=== PATIENT | female | born 1945 | race Caucasian/White ===

== ENCOUNTER 2016-06-09 10:13 | Emergency (ER) | payer MEDICARE, OTHER ==
--- NOTE | 2016-06-09 10:36 | ER Document Report ---
ED Medical Screen (RME) - General Stated Complaint: POSSIBLE ALLERGIC REACTION Time seen by provider: 10:31 Mode of Arrival: Ambulatory Information source: Patient - HPI Patient complains to provider of: POSSIBLE REACTION TO LEVAQUIN Onset: Other - 4 AM THIS MORNING Onset/Duration: Sudden Quality of pain: No pain Severity: None Pain Level: Denies Associated Symptoms: Cough (nonproductive), Hurts to breath, Shortness of breath , Other - THROAT FEELS TIGHT Exacerbated by: Denies Relieved by: Denies Similar symptoms previously: No Recently seen / treated by doctor: Yes - PUT ON LEVAQUIN THIS AM - Related Data Smoking: Chew Frequency of alcohol use: None Drug Abuse: None Pertinent History: GIVEN 50MG BENADRYL AND 120MG DEPOMEDROL PRIOR TO ARRIVAL AT [facility]. I have greeted and performed a rapid initial assessment of this patient. A comprehensive ED assessment and evaluation of the patient, analysis of test results and completion of the medical decision making process will be conducted by additional ED providers. Allergies/Adverse Reactions: levofloxacin [From Levaquin] Allergy (Verified 06/09/16 10:32) Past Medical History - Past Medical History Cardiac Medical History: Reports: Hx Hypertension Endocrine Medical History: Reports: Hx Hypothyroidism Musculoskeltal Medical History: Reports Hx Arthritis Past Surgical History: Reports: Hx Cholecystectomy, Hx Tubal Ligation - Immunizations Immunizations up to date: Yes Hx Diphtheria, Pertussis, Tetanus Vaccination: Yes
[2016-06-09] MEDS ORDERED: FAMOTIDINE 20 MG TABLET PO ONE (12:41)
--- NOTE | 2016-06-09 12:48 | ER Document Report ---
HPI - HPI Patient complains to provider of: allergic reaction Onset: This morning Onset/Duration: Better Quality of pain: No pain Pain Level: Denies Context: Patient states that she has had sinus infection for the past few weeks and was recently placed on an antibiotic to treat this. Patient states she took Levaquin for the first time last night at 10 PM. Patient reports waking up at 4 AM like her throat was closing. Patient denies any rash, difficulty breathing , chest pain, or any other symptoms. Patient states she went to her doctor's office and was given a shot of Benadryl as well as steroids around 9:50 this morning. Patient states her doctor then advised her to come to the emergency room so that we could observe her for at least 2 hours. Patient states that she arrived to the emergency department about 2 hours ago. Patient currently denies any complaints or symptoms. Patient states that her throat swelling symptoms have resolved. Associated Symptoms: Other - Allergic reaction Exacerbated by: Denies Relieved by: Denies Similar symptoms previously: No Recently seen / treated by doctor: Yes - ROS ROS below otherwise negative: Yes Systems Reviewed and Negative: Yes All other systems reviewed and negative - CONSTITUTIONAL Constitutional: DENIES: Fever, Chills - EENT EENT: DENIES: Sore Throat, Congestion - NEURO Neurology: DENIES: Headache, Weakness - CARDIOVASCULAR Cardiovascular: DENIES: Chest pain - RESPIRATORY Respiratory: DENIES: Trouble Breathing, Coughing - GASTROINTESTINAL Gastrointestinal: DENIES: Nausea, Patient vomiting - REPRODUCTIVE Reproductive: DENIES: : - MUSCULOSKELETAL Musculoskeletal: DENIES: Swelling - DERM Skin Color: Normal Skin Problems: None Past Medical History - General Information source: Patient - Social History Smoking Status: Unknown if Ever Smoked Chew tobacco use (# tins/day): Yes Frequency of alcohol use: None Drug Abuse: None Lives with: Spouse/Significant other Family History: Arthritis, CAD, DM, Hypertension Patient has suicidal ideation: No Patient has homicidal ideation: No - Past Medical History Cardiac Medical History: Reports: Hx Hypertension Endocrine Medical History: Reports: Hx Hypothyroidism Renal/ Medical History: Denies: Hx Peritoneal Dialysis Musculoskeltal Medical History: Reports Hx Arthritis Past Surgical History: Reports: Hx Cholecystectomy, Hx Tubal Ligation - Immunizations Immunizations up to date: Yes Hx Diphtheria, Pertussis, Tetanus Vaccination: Yes Vertical Provider Document - CONSTITUTIONAL Agree With Documented VS: Yes Exam Limitations: No Limitations General Appearance: WD/WN, No Apparent Distress - INFECTION CONTROL TRAVEL OUTSIDE OF THE [place] IN LAST 30 DAYS: No - HEENT HEENT: Atraumatic, Normal ENT Exam, Normocephalic Notes: No angioedema, no potential airway compromise. Respirations unlabored. Patient managing oral secretions Mild tenderness with palpation over the maxillary sinus, no facial swelling - NECK Neck: Normal Inspection, Supple - RESPIRATORY Respiratory: Breath Sounds Normal, No Respiratory Distress, Chest Non-Tender O2 Sat by Pulse Oximetry: 98 - CARDIOVASCULAR Cardiovascular: Regular Rate, Regular Rhythm, No Murmur - BACK Back: Normal Inspection - MUSCULOSKELETAL/EXTREMETIES Musculoskeletal/Extremeties: MAEW - NEURO Level of Consciousness: Awake, Alert, Appropriate Motor/Sensory: No Motor Deficit - DERM Integumentary: Warm, Dry, No Rash Course - Re-evaluation Re-evalutation: 06/09/16 12:[address] Willett who agrees with plan of care Discussed worsening signs or symptoms that patient should return immediately for. Patient verbalized understanding and agrees with plan of care. Patient presently denies any complaints or symptoms at present. 06/09/16 12:44 Patient states she has taken Augmentin in the past without adverse reaction - Vital Signs Vital signs: Temp Pulse Resp BP Pulse Ox 97.3 F 70 16 160/104 H 98 06/09/16 10:33 06/09/16 10:33 06/09/16 10:33 06/09/16 10:33 06/09/16 10:33 Discharge - Discharge Clinical Impression: hx sinus infection Allergic reaction caused by a drug Qualifiers: Encounter type: initial encounter Qualified Code(s): T78.40XA - Allergy, unspecified, initial encounter Condition: Stable Disposition: HOME, SELF-CARE Instructions: Acute Allergic Reaction to Drugs ([facility]), Augmentin ([facility]), Steroid Medication, Use of Diphenhydramine Additional Instructions: Return immediately for any new or worsening symptoms, call 911 if symptoms are severe Followup with your primary care provider, call tomorrow to make a followup appointment Take Benadryl and Pepcid [id number] as directed to help with your symptoms List Levaquin as an allergy in the future Prescriptions: Amox Tr/Potassium Clavulanate [Augmentin 875-125 Tablet] 1 tab PO BID 10 Days Prednisone [Deltasone 20 mg Tablet] 2 tab PO DAILY 5 Days Forms: Elevated Blood Pressure Referrals: SRINIVASA BURTON MD [Primary Care Provider] - Follow up tomorrow
[2016-06-09 13:20] VITALS: BP 171/81
== END 2016-06-09 13:16 | disposition home or self-care (01) ==
LOC: ER 10:13
DX: R09.89 Other specified symptoms and signs involving the circulatory and respiratory systems (principal); T37.8X5A Adverse effect of other specified systemic anti-infectives and antiparasitics, initial encounter; J32.9 Chronic sinusitis, unspecified; I10 Essential (primary) hypertension; Z72.0 Tobacco use
CPT/HCPCS: 99283; 70360; A9270

== ENCOUNTER → 2017-05-13 | Day surgery (SDC) | payer MEDICARE, OTHER ==
[~2017-05-13] MED LIST: LIDOCAINE 1%/EPINEPHRINE INJ 20 ML VIAL ONE
--- NOTE | 2017-05-13 17:13 | OPERATIVE REPORT E ---
Operative Report NAME: CRISTINO HANNAH : 1945 AGE: 72Y DATE OF SURGERY: May 13, 2017 ROOM: PREOPERATIVE DIAGNOSIS: Abnormal clustered microcalcifications, upper outer quadrant, left breast. POSTOPERATIVE DIAGNOSIS: Abnormal clustered microcalcifications, upper outer quadrant, left breast. OPERATION: 1. Stereotactically directed incision mammotomy and core biopsies, left breast. 2. Placement of click marker. 3. Interpretation of intraoperative mammography and core specimen. SURGEON: GINNY FENTON M.D. ANESTHESIA: 1% lidocaine plain. COMPLICATIONS: None. ESTIMATED BLOOD LOSS: Minimal. DRAINS: None. TISSUE REMOVED OR ALTERED: Multiple cores, left breast. PROCEDURE: The patient was brought from the holding area to the Radiology Suite where the left breast was placed in compression. A craniocaudal approach was used to localize the microcalcifications in the superficial aspect of the left breast upper outer quadrant. Skin was anesthetized with 1% lidocaine after prepping the surface of the breast with Betadine. A estephania was made in the skin with a #11 blade and a mammotome advanced to the appropriate depth. Three pre- and post-fire films showed good alignment between the Mammotome and the target microcalcifications which were in the inferior hemisphere of the Mammotome. We proceeded to obtain approximately 11 core specimens which were all collected on a single CoreTainer. The patient tolerated the procedure well. The CoreTainer was imaged and found to contain several microcalcifications. We felt the procedure was complete. A clip marker was deployed, followup mammogram showing the clip in the left breast post-biopsy cavity. Mammotome was removed and left breast placed in compression. The patient tolerated the procedure well. Post-procedure discharge instructions provided. DICTATING PHYSICIAN: GINNY FENTON M.D. [id number] PHY#: [id number] ID: [id number] JOB#: [id number] ACCT: [id number] cc:GINNY FENTON M.D. >
--- NOTE | 2017-05-18 08:45 | WOMENS IMAGING REPORT ---
EXAM DESCRIPTION: STEREO BREAST BX; LEFT DIG DX MAMMO NO CHG COMPLETED DATE/TIME: 05/13/2017 1:19 pm; 05/13/2017 1:10 pm REASON FOR STUDY: MAMMOGRAPHIC MICROCALIFICATION FOUND ON DIAGNOSTIC IMAGING OF BREAST; JOAQUÍN PEARSON T BX CLIP PLACEMENT R92.0 MAMMOGRAPHIC MICROCALCIFICATION FOUND ON DX IMAGING OF COMPARISON: None. LIMITATIONS: None. PROCEDURE: Vacuum-assisted stereotactic-guided biopsy of the lesion in the left breast performed by Dr. Silveira who also targeted the lesion. Using stereotactic guidance, a vacuum-assisted core biopsy of the targeted lesion was performed. A p ellet clip was deployed at the biopsy site. Post procedure image demonstrates no clip at the biopsy site. There is a 1.5 to 2 cm hematoma at the biopsy site. A specimen radiograph was obtained. The radiograph demonstrated calcifications of concern in the bio psy tissue. TECHNIQUE: Images from the stereotactic unit acquired during the procedure. Specimen radiography performed. Yes. Post- procedure image acquired post-clip placement. Yes. Post procedure 2 view mammograms performed in the mammography suite. Yes. Vacuum-assisted stereotactic-guided biopsy of the lesion in the left breast. Serial progress stereota ctic and single digital images acquired. FINDINGS: SPECIMEN RADIOGRAPH:Calcifications identified.. POST PROCEDURE MAMMOGRAMS FOR MARKER PLACEMENT: Yes. However, the marker is not seen on the postproc edure films and was extruded from the biopsy site POST PROCEDURE MAMMOGRAM: Small left breast hematoma 5 cm from the nipple left breast 3 o'clock posit ion. PATHOLOGY: Ductal carcinoma in situ CONCORDANT: Yes. The operating surgeon was notified of the findings. IMPRESSION: SUCCESSFUL STEREOTACTIC-GUIDED BIOPSY OF LESION IN THE LEFT BREAST. BIOPSY RESULTS ARE CONCORDANT WITH IMAGING FINDINGS. FOLLOW-UP: PER SURGEON BI-RADS 6 left breast known malignancy. Appropriate action should be taken TECHNICAL DOCUMENTATION: JOB ID: [id number]- All Rights Reserved
== END ==
LOC: RAD 10:35 → EDSTATUS 11:00
PROVIDERS: ATTEND Surgery
PROC: 0HBU3ZX Excision of Left Breast, Percutaneous Approach, Diagnostic (ICD-10-PCS; principal; 2017-05-13)
DX: D05.12 Intraductal carcinoma in situ of left breast (principal); Z17.0 Estrogen receptor positive status [ER+]
CPT/HCPCS: 88305 ×2; 19081; J3490

== ENCOUNTER 2017-06-09 06:02 | Day surgery (SDC) | payer MEDICARE, OTHER ==
[2017-06-02 12:00] LABS: HEMATOCRIT 34.6 % (36.0-47.0); HEMOGLOBIN 11.1 g/dL (12.0-15.5); MEAN CORPUSCULAR HEMOGLOBIN 26.3 pg (27.0-33.4); MEAN CORPUSCULAR VOLUME 82 fl (80-97); PLATELET COUNT 184 10^3/uL (150-450); RED BLOOD COUNT 4.22 10^6/uL (3.72-5.28); WHITE BLOOD COUNT 6.3 10^3/uL (4.0-10.5)
[2017-06-02 12:28] LABS: ANION GAP 10 (5-19); BLOOD UREA NITROGEN 20 mg/dL (7-20); CALCIUM 9.3 mg/dL (8.4-10.2); CARBON DIOXIDE 28 mmol/L (22-30); CHLORIDE 105 mmol/L (98-107); GLUCOSE 112 mg/dL (75-110); POTASSIUM 3.8 mmol/L (3.6-5.0); SODIUM 142.7 mmol/L (137-145)
--- NOTE | 2017-06-02 13:53 | EKG REPORT ---
SEVERITY:- OTHERWISE NORMAL ECG - SINUS RHYTHM BORDERLINE LEFT AXIS DEVIATION : Confirmed by: Christopher Nunez MD 02-Jun-2017 13:52:51
[~2017-06-09 06:02] MED LIST changes: +CEFAZOLIN 1 GM/D5W RTU 1 GM/50 ML RTUPB IV ONE; +CEFAZOLIN INJ 1 GM VIAL IV PRN; +LACTATED RINGERS 1000 ML IV PRN; +LIDOCAINE 0.5% INJ-PF (5 MG/ML) 50 ML SDV SUBCUT PRN; -LIDOCAINE 1%/EPINEPHRINE INJ 20 ML VIAL ONE; +LIDOCAINE 4% TRANSPARENT DRESSING 5 GM KIT TP PRN
[2017-06-09] MEDS ORDERED: LIDOCAINE 2% INJ (20 MG/ML) 20 ML MDV ONE (06:38)
--- NOTE | 2017-06-09 09:45 | RADIOLOGY REPORT (SQ) ---
EXAM DESCRIPTION: NM LYMPHATICS/LYMPH GLANDS COMPLETED DATE/TIME: 06/09/2017 8:30 am REASON FOR STUDY: BREAST CANCER D05.10 INTRADUCTAL CARCINOMA IN SITU OF UNSPECIFIED BREAST COMPARISON: Left breast stereotactic biopsy 01/30/2018 RADIONUCLIDE AND DOSE: 541 microcuries TC-99m tilmanocept - Lymphoseek. The route of agent administration: Subcutaneous in the skin. TECHNIQUE: The skin of the left breast was prepped in sterile fashion. The radiopharmaceutical was administered in equally divided doses in the periareolar breast. LIMITATIONS: None. FINDINGS: Images demonstrate activity at the injection site. There is migration towards the left ax illa. IMPRESSION: ADMINISTRATION OF RADIOPHARMACEUTICAL FOR SENTINEL LYMPH NODE EVALUATION. TECHNICAL DOCUMENTATION: JOB ID: [id number] [employer]- All Rights Reserved Reading location - IP/workstation name: [email or web address]
[2017-06-09] MEDS ORDERED: MICROFIBRILLAR COLLAGEN 1 GM PACK ONE (11:35)
[2017-06-09] MEDS ORDERED: LIDOCAINE 1%/EPINEPHRINE INJ 20 ML VIAL ONE (11:35)
[2017-06-09] MEDS ORDERED: METHYLENE BLUE 50 MG/10 ML AMPULE ONE (11:35)
[2017-06-09] MEDS ORDERED: FENTANYL CITRATE INJ/PF 100 MCG/2 ML AMPUL ONE ×2 (12:22→12:23)
[2017-06-09] MEDS ORDERED: LIDOCAINE 2% INJ-PF (20 MG/ML) 10 ML AMPUL ONE (12:22)
[2017-06-09] MEDS ORDERED: ONDANSETRON HCL INJ/PF 4 MG/2 ML SDV ONE (12:23)
[2017-06-09] MEDS ORDERED: DEXAMETHASONE SOD PHOSPHATE INJ 4 MG/1 ML VIAL ONE (12:23)
[2017-06-09] MEDS ORDERED: MIDAZOLAM 2 MG/2 ML INJ ONE (12:23)
[2017-06-09] MEDS ORDERED: PROPOFOL INJ 200 MG/20 ML VIAL IV ONE (12:24)
[2017-06-09] MEDS ORDERED: ACETAMINOPHEN 100 ML IV ONE ×2 (12:24→15:08)
[2017-06-09] MEDS ORDERED: DIPHENHYDRAMINE HCL 50 MG/ML VIAL IV PRN (13:03)
[2017-06-09] MEDS ORDERED: ONDANSETRON HCL INJ/PF 4 MG/2 ML SDV IV PRN (13:03)
[2017-06-09] MEDS ORDERED: MEPERIDINE HCL/PF INJ 25 MG/1 ML DISP.SYRIN IV PRN (13:03)
[2017-06-09] MEDS ORDERED: PROMETHAZINE HCL INJ 25 MG/1 ML VIAL IV PRN ×2 (13:03)
[2017-06-09] MEDS ORDERED: FENTANYL CITRATE INJ/PF 100 MCG/2 ML AMPUL IV PRN ×3 (13:03)
--- NOTE | 2017-06-09 14:56 | PDOC DISCHARGE SUMMARY ---
Discharge Summary (SDC) - Discharge Final Diagnosis: Left breast cancer Date of Surgery: 06/09/17 Discharge Date: 06/09/17 Condition: Stable Treatment or Instructions: [facility] [address] [id number] Care Instructions Following Your Lumpectomy Activities: Resume normal activities when you feel comfortable. It is best to remain as active as possible to speed your recovery. It is common to experience some fatigue after surgery and you may find that short naps are helpful. Avoid strenuous activity such as weight lifting, tennis, etc at your surgical site for two weeks. Perform gentle arm exercises daily and do not favor your operative arm to due increased risk of mobility issues postoperatively. No driving for 7 days after surgery. Do not drive if you are taking pain medication other than Tylenol or Ibuprofen. No swimming, tub baths or soaking in a hot tub for 4 weeks. There are no dietary restrictions. Do not smoke as this impairs wound healing. Surgical Site care: You may shower in 48 hours. Leave skin glue intact. Do not scrub the incision. Pat the area dry with a towel. You do not need to recover the wound although some patients find that they feel more comfortable using a light dressing for a few days to absorb any minimal drainage which may occur. If you use a dressing in this manner change it at least every day. Do not use heating pad or apply an ice pack to the operative site. You may apply deodorant if you are careful to avoid getting it on the wound itself. Medications: Take Toradol 10mg one pill every six hours as needed for pain. Resume all of your normal prescription medications after your surgery unless instructed otherwise. Follow-up: Call our office at to make a follow-up appointment in 10-14 days. Your doctor will call to discuss the pathology report with you as soon as it is available. Concerns: If you had a sentinel lymph node biopsy with your mastectomy, your urine may have a greenish discoloration. This is normal and will resolve as the blue dye slowly leaves your system. Some bruising may occur and will go away over time. If you have a fever of 101.5 or greater, chills, redness at the incision site , excessive drainage from your wound or severe pain not relieved by pain medication, call your doctor. A physician is available 24 hours a day 7 days a week in addition to regular office hours. If problems arise after normal office hours please call the hospital at . Please call [phone] if you have any questions or concerns. Prescriptions: Oxycodone HCl/Acetaminophen [Percocet 5-325 mg Tablet] 1 tab PO Q6 PRN #15 tab PRN Reason: Referrals: SRINIVASA BURTON MD [Primary Care Provider] - Discharge Diet: As Tolerated Discharge Activity: No Lifting/Push/Pulling, Walk Frequently Report the Following to Your Physician Immediately: Increase in Pain, Fever over 101 Degrees, Unusual Bleeding, Redness, Drainage-Foul Smelling
[2017-06-09] MEDS: FENTANYL CITRATE INJ/PF 100 MCG/2 ML AMPUL ONE ×2 (15:03→15:08)
--- NOTE | 2017-06-09 15:03 | Operative Report ---
Operative Report DATE OF SURGERY: 06/09/17 PREOPERATIVE DIAGNOSIS: DCIS, high-grade breast status post stereotactic biopsy POSTOPERATIVE DIAGNOSIS: Same OPERATION: 1. Needle localized left breast open excisional biopsy. 2. [place] lymph node biopsy left axilla 2. 3. Interpretation of specimen radiograph intraoperatively SURGEON: GINNY MARVIN FOREIGN EXCHANGE DEALER: GARETH ADDISON ANESTHESIA: GA TISSUE REMOVED OR ALTERED: Left breast lumpectomy specimen; sentinel lymph nodes 2 COMPLICATIONS: None ESTIMATED BLOOD LOSS: Scant INTRAOPERATIVE FINDINGS: See below PROCEDURE: Patient was seen in the preop holding area after undergoing a left breast lymphoscintigraphy, and needle localization of target left breast pathology. Normal node mapping showed increased uptake in the left axilla with successful uptake; patient was status post stereotactically directed incisional myotomy core biopsies and clip marker placement with final pathology report showing. She underwent wire localization by Dr. Shaikh. Unfortunately the stereotactically placed clip is no longer present in the breast, presumably lost during recovery from her minimally invasive procedure. Dr. Shaikh used the previous biopsy cavity, as well as a small, subtle cluster of microcalcifications deep to and medial to the biopsy cavity as target territory for excisional biopsy. The patient taken to the operating room where she underwent general anesthesia. Left arm was abducted, left breast exposed. Blue dye was injected into the 2 o'clock position areolar border intradermal position, total of 2 cc concentrated. Left breast was massaged, and the hub of the localizing needle and wire clipped off with the wire cutters. The left breast and axilla were prepped and draped in sterile fashion. Surgical plan and surgical timeout were conducted. Left breast was approached for the lumpectomy first. We reviewed the needle localization mammograms. The needle and wire were coming into the left breast from a lateral position. We numbed up the breast with 1/4% Marcaine, made a curvilinear incision over the 3 o'clock position of left breast encompassing the needle. The wire retracted into the substance of the breast. We removed a generous lumpectomy from the left breast using electrocautery. The specimen removed from the left breast was approximately 5 x 8 x 5 cm Consisting of the more distal or peripheral large mass and a smaller attached mass medially to encompass the tip of the wire. We removed the specimen, oriented the specimen with the short suture in the superior position and a long suture in the lateral position; The needle and wire entered the lumpectomy specimen from the lateral position. We could palpate the previous biopsy cavity in the lateral aspect of the specimen. The specimen was radiographed in the operating room using portable radiology unit, and this revealed the needle and wire as well as a suggestion of the microcalcifications. The specimen was then sent to the radiology department where it was imaged with the specimen radiograph machine and this confirmed acquisition of the target microcalcifications proximal more medial to the stereotactic biopsy cavity. She is were reviewed by Drs. Silveira and Dr. Shaikh and we confirmed satisfactory acquisition of the target tissue. Again this was made difficult by the absence of the clip marker that was originally placed after the stereotactic biopsy. At this point we felt the lumpectomy operation was complete. Avitene was placed in the recesses of the cavity, the wound closed with interrupted 2 and 3-0 Vicryl suture. We now turned our attention to the left axilla. An area of active activity was detected in the low axilla, appropriate amount of local lidocaine was placed into the skin and subcutaneous tissue and a 3 and half centimeter incision was made in the low axilla in a curvilinear fashion. We now proceeded to perform sentinel lymph node biopsy. Unfortunately with the neoprobe was set with the sensitivity to technetium 99, we had significant scatter and poor localization. Spent a fair amount of time looking for a blue node and we were unsuccessful for approximately 30 minutes during the left axilla. ;After conferring with Dr. Shaikh, and a yenni-probe guest experience representative we adjusted the machine for the isotope to 111. This narrows the field of activity and enable us to perform acquisition of the first sentinel lymph node which was a low level 1, blue and hot with an in vivo count of 48,537, an ex vivo count of 22,945. A second lymph node was acquired in the same vicinity not blue but hot with an in vivo count of 2098 and an ex vivo count of 4854. Her graft background counts were negligible. We felt the sentinel node portion of the biopsy seizure was complete. Avitene was placed in the recesses of the wound and the wound closed with 0 Vicryl suture. Both lumpectomy and axillary lymph node harvest incisions closed with Dermabond glue. There were no drains placed. Patient tolerated the procedure well. She was taken to the recovery room extubated in stable condition.
[2017-06-09] MEDS ORDERED: HYDROMORPHONE HCL INJ/PF 2 MG/ML AMPULE ONE (15:25)
[2017-06-09] MEDS ORDERED: PROMETHAZINE HCL INJ 25 MG/1 ML VIAL ONE (15:43)
[2017-06-09] MEDS ORDERED: SUCCINYLCHOLINE CHLORIDE INJ 200 MG/10 ML VIAL ONE (16:04)
[2017-06-09] MEDS ORDERED: OXYCODONE-ACETAMINOPHEN 5-325 MG TABLET ONE (16:31)
[2017-06-09 17:50] VITALS: BP 148/89
== END 2017-06-09 17:35 | disposition home or self-care (01) ==
LOC: OROUT 06:02
PROVIDERS: ATTEND Surgery
PROC: 0HBU0ZZ Excision of Left Breast, Open Approach (ICD-10-PCS; principal; 2017-06-09 12:30)
DX: D05.12 Intraductal carcinoma in situ of left breast (principal); I10 Essential (primary) hypertension; M19.90 Unspecified osteoarthritis, unspecified site; E03.9 Hypothyroidism, unspecified; E11.9 Type 2 diabetes mellitus without complications; M06.9 Rheumatoid arthritis, unspecified; E55.9 Vitamin D deficiency, unspecified; Z88.5 Allergy status to narcotic agent; Z79.82 Long term (current) use of aspirin; Z79.899 Other long term (current) drug therapy; Z79.84 Long term (current) use of oral hypoglycemic drugs
CPT/HCPCS: 93005; 36415; 82962; 85027; 80048; 88342 ×2; 88341 ×2; 88307 ×2; 78195; 93010; 19281; 76098; 19301; 38500; A9520; J2250; J3490 ×5; J0690; J1100; J3010; A9270; J1170; J2550; J0330; J2405; J2704; J0131; Q9968; 1610

== ENCOUNTER 2017-08-26 07:30 | Day surgery (SDC) | payer MEDICARE, OTHER ==
[~2017-08-26 07:30] MED LIST changes: -CEFAZOLIN 1 GM/D5W RTU 1 GM/50 ML RTUPB IV ONE; -CEFAZOLIN INJ 1 GM VIAL IV PRN; +DIPHENHYDRAMINE HCL 50 MG/ML VIAL ONE; +EPINEPHRINE INJ 1 MG/10 ML DISP.SYRIN ONE; +FLUMAZENIL INJ 0.5 MG/5 ML VIAL ONE; +GLUCAGON,HUMAN RECOMB 1 MG INJ ONE; -LACTATED RINGERS 1000 ML IV PRN; -LIDOCAINE 0.5% INJ-PF (5 MG/ML) 50 ML SDV SUBCUT PRN; -LIDOCAINE 4% TRANSPARENT DRESSING 5 GM KIT TP PRN; +NALOXONE HCL INJ/PF 0.4 MG/1 ML SDV ONE; +ONDANSETRON HCL INJ/PF 4 MG/2 ML SDV ONE
[2017-08-26] MEDS: MIDAZOLAM 2 MG/2 ML INJ ONE ×3 (08:39→08:47)
[2017-08-26] MEDS: FENTANYL CITRATE INJ/PF 100 MCG/2 ML AMPUL ONE ×3 (08:41→08:49)
--- NOTE | 2017-08-26 09:22 | OPERATIVE REPORT E ---
Operative Report NAME: CRISTINO HANNAH : 1945 AGE: 72Y DATE OF SURGERY: 08/26/2017 ROOM: PREOPERATIVE DIAGNOSIS: Need for screening colonoscopy. POSTOPERATIVE DIAGNOSIS: Need for screening colonoscopy with sigmoid diverticulosis. PROCEDURE: Total colonoscopy to the cecum with photo documentation. SURGEON: GINNY FENTON M.D. ANESTHESIA: Conscious sedation. COMPLICATIONS: None. ESTIMATED BLOOD LOSS: None. DRAINS: None. TISSUE REMOVED OR ALTERED: None. SUMMARY OF PROCEDURE: The patient was brought from the endoscopy waiting area to the main endoscopy suite where conscious sedation was induced after attaching the patient to appropriate monitoring devices. She was placed in the left lateral decubitus position. Surgical plan and surgical timeout were conducted. A rectal exam was performed. There was no visible palpable anorectal pathology. The flexible adult colonoscope was advanced all the way to the anorectal canal through the entire length of the colon to the cecum. Translumination to the anterior abdominal wall, visualization to the ileocecal valve confirmed cecal intubation. This was an excellent study on a reasonably well-prepped bowel. There was some residual liquid green effluent, which was aspirated easily. The scope was removed from the length of the colon, checking the mucosa carefully. There were sigmoid diverticuloses scattered. Otherwise, this was an entirely normal colon. Mucosa was normal. There was no evidence of tumor, polyp, or stricture. The scope was retroflexed in the anorectal canal. No other pathology was seen. The scope was withdrawn from the patient's anus. She tolerated the procedure well. Per screening guidelines, the patient would be an appropriate candidate for followup colonoscopy in approximately 10 years, or sooner if symptoms develop. DICTATING PHYSICIAN: GINNY FENTON M.D. [id number] PHY#: [id number] ID: [id number] JOB#: [id number] ACCT: [id number] cc:GINNY FENTON M.D. >
--- NOTE | 2017-08-26 09:25 | DISCHARGE SUMMARY E ---
Discharge Summary NAME: CRISTINO HANNAH : 1945 AGE: 72Y ADMITTED: 08/26/2017 DISCHARGED: 08/26/2017 SUMMARY OF HOSPITALIZATION: The patient is a 72-year-old white female with a history of breast cancer, minimally invasive, who was brought to the endoscopy suite for screening colonoscopy. The procedure was performed and dictated separately. There were no postprocedure complications. She tolerated the procedure well. There were no pathologic findings. FINAL DIAGNOSIS: Status post total colonoscopy to cecum with photo documentation by Dr. Silveira. DISPOSITION: The patient will be discharged home in the care of family. Follow up with Dr. Silveira, [facility] in 1-2 weeks. Resume preoperative medications, diet, and activity. DICTATING PHYSICIAN: GINNY SILVEIRA M.D. [id number] PHY#: [id number] ID: [id number] JOB#: [id number] ACCT: [id number] cc:GINNY SILVEIRA M.D. >
[2017-08-26 10:03] VITALS: BP 122/54
== END 2017-08-26 10:05 | disposition home or self-care (01) ==
LOC: END 07:30
PROVIDERS: ATTEND Surgery
DX: Z12.11 Encounter for screening for malignant neoplasm of colon (principal); K57.30 Diverticulosis of large intestine without perforation or abscess without bleeding; I10 Essential (primary) hypertension; E55.9 Vitamin D deficiency, unspecified; E03.9 Hypothyroidism, unspecified; E11.9 Type 2 diabetes mellitus without complications; M19.90 Unspecified osteoarthritis, unspecified site; E66.9 Obesity, unspecified; Z79.82 Long term (current) use of aspirin; Z79.899 Other long term (current) drug therapy; Z79.84 Long term (current) use of oral hypoglycemic drugs
CPT/HCPCS: 82962; G0121; J2250; J3010; J0171; J1200; J1610; J2310; J2405; J3490

== ENCOUNTER → 2018-09-21 | Outpatient (CLI) | payer MEDICARE, OTHER ==
--- NOTE | 2018-09-21 17:57 | RADIOLOGY REPORT (SQ) ---
EXAM DESCRIPTION: VENOUS UNILATERAL LOWER COMPLETED DATE/TIME: 09/21/2018 5:07 pm REASON FOR STUDY: RLE PAIN M79.661 PAIN IN RIGHT LOWER LEG COMPARISON: None. TECHNIQUE: Dynamic and static khanna scale and color images acquired of the right leg venous system. S elected spectral images acquired with additional compression and augmentation maneuvers. The contrala teral common femoral vein and saphenofemoral junction were also imaged. Images stored on PACS. LIMITATIONS: None. FINDINGS: RIGHT COMMON FEMORAL: Normal phasicity, compression and augmentation. No visualized echogenic material on g ray scale. No defects on color images. FEMORAL: Normal compression and augmentation. No visualized echogenic material on khanna scale. No defe cts on color images. POPLITEAL: Normal compression, augmentation. No visualized echogenic material on khanna scale. No defec ts on color images. POSTERIOR TIBIAL AND PERONEAL VEINS: Normal compression, augmentation. No visualized echogenic materi al on khanna scale. No defects on color images. GSV and SSV: Normal compression, augmentation. No visualized echogenic material on khanna scale. No def ects on color images. ANY DEEP VENOUS INSUFFICIENCY: Not evaluated. ANY EVIDENCE OF POPLITEAL CYST: No. OTHER: No other significant finding. LEFT COMMON FEMORAL VEIN AND SAPHENOFEMORAL JUNCTION: Normal phasicity, compression and augmentation. No visualized echogenic material on khanna scale. No de fects on color images. IMPRESSION: NO EVIDENCE OF DVT OR SVT IN THE RIGHT LEG. TECHNICAL DOCUMENTATION: JOB ID: [id number] [employer]- All Rights Reserved Reading location - IP/workstation name: [email or web address]
== END ==
LOC: SP 16:25
PROVIDERS: ATTEND Physician Assistant
DX: M79.661 Pain in right lower leg (principal)
CPT/HCPCS: 93971

== ENCOUNTER 2018-11-30 21:54 | Emergency (ER) | payer MEDICARE, OTHER ==
[2018-11-30] MEDS ORDERED: ONDANSETRON HCL 8 MG TABLET ONE (22:45)
[2018-11-30] MEDS ORDERED: MORPHINE SULFATE 10 MG/ML INJ IV ONE (22:48)
[2018-11-30] MEDS ORDERED: FAMOTIDINE INJ/PF 20 MG/2 ML SDV IV ONE (22:53)
[2018-11-30] MEDS ORDERED: METOPROLOL TARTRATE PF/INJ 5 MG/5 ML SDV IV ONE (22:56)
--- NOTE | 2018-11-30 22:57 | ER Document Report ---
ED General - General Chief Complaint: Vomiting Stated Complaint: VOMITING Time Seen by Provider: 11/30/18 22:40 Primary Care Provider: ROBERT TY PA [NO LOCAL MD] - Follow up as needed Mode of Arrival: Wheelchair Information source: Patient, Relative, [facility] Records Notes: 73-year-old female with hypertension, hypothyroidism, breast cancer, recent discectomy presents with complaint of nausea, vomiting, abdominal cramping and diarrhea that started 1 day prior to arrival. Patient states that she initially developed diarrhea which she states is nonbloody or black yesterday. Her abdominal camping is diffusely located. She has had innumerable episodes of nonbilious nonbloody emesis and has not been able to hold down any food or fluid since this morning. Patient's recent discectomy was approximately 2 weeks ago and she did receive antibiotics at that time but denies sick contacts or recent travel. She denies fever, chills, chest pain, shortness of breath, dysuria, hematuria, vaginal discharge. Patient was able to take her a.m. blood pressure medication but has not been able to tolerate her medications for this evening likely the reason for her elevated blood pressure. TRAVEL OUTSIDE OF THE [place] IN LAST 30 DAYS: No - HPI Onset: Yesterday Onset/Duration: Gradual, Persistent Quality of pain: Cramping Severity: Moderate Associated symptoms: Diarrhea, Nausea, Vomiting. denies: Chest pain, Chills, Fever, Headache, Shortness of breath, Sweating, Weakness Exacerbated by: Food Relieved by: Denies Similar symptoms previously: No Recently seen / treated by doctor: No - Related Data Allergies/Adverse Reactions: benazepril Allergy (Verified 08/26/17 07:24) levofloxacin [From Levaquin] Allergy (Verified 08/26/17 07:24) codeine Adverse Reaction (Verified 08/26/17 07:24) Past Medical History - General Information source: Patient, Relative - Social History Smoking Status: Never Smoker Frequency of alcohol use: None Drug Abuse: None Lives with: Family Family History: Arthritis, CAD, DM, Hypertension Patient has suicidal ideation: No Patient has homicidal ideation: No - Past Medical History Cardiac Medical History: Reports: Hx Hypertension - ON MEDS Denies: Hx Coronary Artery Disease, Hx Heart Attack Pulmonary Medical History: Denies: Hx Asthma, Hx Bronchitis, Hx COPD, Hx Pneumonia Neurological Medical History: Denies: Hx Cerebrovascular Accident, Hx Seizures Endocrine Medical History: Reports: Hx Hypothyroidism Renal/ Medical History: Denies: Hx Peritoneal Dialysis Musculoskeletal Medical History: Reports Hx Arthritis - RA- GENERALIZED- CONTROLLED ON MEDS Past Surgical History: Reports: Hx Cholecystectomy, Hx Orthopedic Surgery - L Knee replacement, R hand carpal tunnel, Hx Tubal Ligation. Denies: Hx Hysterectomy - Immunizations Immunizations up to date: Yes Hx Diphtheria, Pertussis, Tetanus Vaccination: Yes Hx Pneumococcal Vaccination: 04/12/16 Review of Systems - Review of Systems Notes: REVIEW OF SYSTEMS: CONSTITUTIONAL : Denies fever, chills, or sweats. Denies recent illness. Denies weight loss, + recent hospitalizations. EENT: Denies visual changes, eye pain. Denies sore throat, oral lesions, dif ficulty swallowing. CARDIOVASCULAR: Denies chest pain. Denies palpitations. Denies lower extremity edema. RESPIRATORY: Denies cough. Denies shortness of breath, wheezing. GASTROINTESTINAL: Denies abdominal distention. +nausea, vomiting, or diarrhea. Denies blood in vomitus, stools, or per rectum. Denies black, tarry stools. Denies constipation. GENITOURINARY: Denies difficulty urinating, painful urination, frequency, blood in urine, or vaginal discharge. MUSCULOSKELETAL: Denies back or neck pain or stiffness. Denies joint pain or swelling. SKIN: Denies rash, lesions or sores. HEMATOLOGIC : Denies easy bruising or bleeding. LYMPHATIC: Denies swollen glands. NEUROLOGICAL: Denies confusion or altered mental status. Denies loss of consciousness. Denies dizziness or lightheadedness. Denies headache. Denies weakness or paralysis. Denies problems difficulty with ambulation, slurred speech. Denies sensory loss, numbness, or tingling. Denies seizures. PSYCHIATRIC: Denies anxiety or stress. Denies depression, suicidal ideation, or homicidal ideation. Denies visual or auditory hallucinations. Physical Exam - Vital signs Vitals: Temp Pulse Resp BP Pulse Ox 98 F 88 24 H 180/119 H 100 11/30/18 22:21 11/30/18 22:21 11/30/18 22:21 11/30/18 22:21 11/30/18 22:21 - Notes Notes: PHYSICAL EXAMINATION: GENERAL: Ill-appearing, actively vomiting HEAD: Atraumatic, normocephalic. EYES: Pupils equal round and reactive to light, extraocular movements intact, conjunctiva are normal. ENT: Nares patent, oropharynx clear without exudates. Moist mucous membranes. NECK: Normal range of motion, supple without lymphadenopathy LUNGS: Breath sounds clear to auscultation bilaterally and equal. No wheezes rales or rhonchi. HEART: Regular rate and rhythm without murmurs ABDOMEN: Soft, nontender, nondistended abdomen. No guarding, no rebound. No masses appreciated. Female : deferred Musculoskeletal: Normal range of motion, no pitting or edema. No cyanosis. NEUROLOGICAL: Cranial nerves grossly intact. Normal speech, normal gait. Normal sensory, motor exams PSYCH: Normal mood, normal affect. SKIN: Warm, Dry, normal turgor, no rashes or lesions noted. Course - Re-evaluation Re-evalutation: 11/30/18 22:57 Temp Pulse Resp BP Pulse Ox 98 F 88 24 H 180/119 H 100 11/30/18 22:21 11/30/18 22:21 11/30/18 22:21 11/30/18 22:21 11/30/18 22:21 Abdomen/Pelvis CT 12/01/18 00:00 IMPRESSION: 1. No acute inflammatory or obstructive process identified. 2. Diverticulosis without evidence of acute diverticulitis. This exam was performed according to our departmental dose-optimization program, which includes automated exposure control, adjustment of the mA and/or kV according to patient size and/or use of iterative reconstruction technique. Laboratory 11/30/18 11/30/18 11/30/18 23:00 23:00 23:00 WBC 9.2 RBC 4.50 Hgb 13.9 Hct 42.0 MCV 93 MCH 30.8 MCHC 33.0 RDW 14.2 H Plt Count 242 Lymph % (Auto) 13.9 [place] % (Auto) 4.4 Eos % (Auto) 1.0 Baso % (Auto) 0.7 Absolute Neuts (auto) 7.3 Absolute Lymphs (auto) 1.3 Absolute Monos (auto) 0.4 Absolute Eos (auto) 0.1 Absolute Basos (auto) 0.1 Seg Neutrophils % 80.0 H Sodium 137.1 Potassium 3.6 Chloride 100 Carbon Dioxide 26 Anion Gap 11 BUN 16 Creatinine 0.85 Est GFR ( Amer) > 60 Est GFR (MDRD) Non-Af > 60 Glucose 218 H Calcium 9.9 Total Bilirubin 1.0 Direct Bilirubin 0.4 Neonat Total Bilirubin Not Reportable Neonat Direct Bilirubin Not Reportable Neonat Indirect Bili Not Reportable AST 40 H ALT 20 Alkaline Phosphatase 118 Troponin I < 0.012 Total Protein 7.8 Albumin 4.2 Lipase 21.1 L Urine Color Urine Appearance Urine pH Ur Specific [place] Urine Protein Urine Glucose (UA) Urine Ketones Urine Blood Urine Nitrite Urine Bilirubin Urine Urobilinogen Ur Leukocyte Esterase Urine WBC (Auto) Urine RBC (Auto) Squamous Epi Cells Auto Urine Mucus (Auto) Urine Ascorbic Acid 12/01/18 00:50 WBC RBC Hgb Hct MCV MCH MCHC RDW Plt Count Lymph % (Auto) [place] % (Auto) Eos % (Auto) Baso % (Auto) Absolute Neuts (auto) Absolute Lymphs (auto) Absolute Monos (auto) Absolute Eos (auto) Absolute Basos (auto) Seg Neutrophils % Sodium Potassium Chloride Carbon Dioxide Anion Gap BUN Creatinine Est GFR ( Amer) Est GFR (MDRD) Non-Af Glucose Calcium Total Bilirubin Direct Bilirubin Neonat Total Bilirubin Neonat Direct Bilirubin Neonat Indirect Bili AST ALT Alkaline Phosphatase Troponin I Total Protein Albumin Lipase Urine Color YELLOW Urine Appearance CLEAR Urine pH 8.0 Ur Specific [place] 1.011 Urine Protein NEGATIVE Urine Glucose (UA) 50 H Urine Ketones TRACE H Urine Blood NEGATIVE Urine Nitrite NEGATIVE Urine Bilirubin NEGATIVE Urine Urobilinogen NEGATIVE Ur Leukocyte Esterase NEGATIVE Urine WBC (Auto) 1 Urine RBC (Auto) 0 Squamous Epi Cells Auto 1 Urine Mucus (Auto) RARE Urine Ascorbic Acid NEGATIVE Temp Pulse Resp BP Pulse Ox 98.8 F 88 21 H 178/72 H 96 12/01/18 04:06 11/30/18 22:21 12/01/18 03:46 12/01/18 03:46 12/01/18 03:46 73-year-old female presents with nausea, vomiting, diarrhea and diffuse abdominal cramping that has been present for 2 days. Patient has not been able to hold down any food or fluid. Abdominal cramping is generalized. Abdominal exam is benign and she has no focal tenderness. Vitals were reviewed and patient is afebrile, hypertensive but not hypoxic. Patient appears ill, in moderate distress but not toxic or dehydrated. Patient did receive Zofran, IV f luids, morphine. Vital signs reviewed and patient is afebrile, hypertensive likely secondary to her inability to keep down her medications. Patient appears ill but not toxic. She does appear mildly dehydrated. Previous medical records and nursing notes were reviewed. 12/01/18 00:18 Patient reevaluated after receiving morphine and Zofran and states that she still is experiencing nausea and abdominal pain. I will give her additional Reglan and Bentyl. 12/01/18 02:28 Patient reports improvement of her abdominal pain after receiving Bentyl. She states she still feels nauseous but has not vomited since first arriving to the emergency department. 12/01/18 04:49 Patient was given additional Zofran and her home dose of carvedilol p.o. and was able to tolerate it. She is sleep being peacefully now. CBC is without leukocytosis or anemia. CMP shows hyperglycemia without evidence of DKA. U rinalysis not consistent with urinary tract infection. CT of the abdomen and pelvis showed no acute process, diverticulosis without evidence of diverticulitis. Daughter and patient are comfortable with discharge home. Presentation of an overall well-appearing patient in no acute distress with com plaints of nausea, vomiting, diarrhea. This is consistent with likely viral gastroenteritis. Patient has no abdominal tenderness on exam and specifically no tenderness in the RLQ, LLQ, RUQ. Overall well hydrated on exam. Able to tolerate oral intake here in the emergency department. Low clinical suspicion for any acute life-threatening etiology based on exam and history including acute cholecystitis, SBO, appendicitis, nephrolithiasis, or pylonephritis. CMP without evidence of acute hepatitis or significant dehydration. Will plan for discharge at this time with return precautions and followup recommendations. Patient was evaluated and treated as appropriate for the patient's presenting symptoms and complaint, with consideration of any critical or life threatening conditions that may be associated with their obtained history and exam as noted above. All results were discussed with patient and her daughter who is at the bedside. Patient provided the opportunity to ask questions, and express concerns. Patient was educated on treatments based on their presumed diagnosis as noted above. At this time we will discharge the patient with return precautions and follow-up recommendations. Verbal discharge instructions given a the bedside. Medication warnings reviewed. Patient is in agreement with this plan and has verbalized understanding of return precautions. After careful consideration I feel that that patient can be safely discharged from the emergency department, they were advised to followup with a primary care physician in 2-3 days. Dictation on this chart was performed using voice recognition software and may result in unintended grammatical, spelling, syntax or errors. - Vital Signs Vital signs: Temp Pulse Resp BP Pulse Ox 98.8 F 88 21 H 178/72 H 96 12/01/18 04:06 11/30/18 22:21 12/01/18 03:46 12/01/18 03:46 12/01/18 03:46 - Laboratory Result Diagrams: 11/30/18 23:00 11/30/18 23:00 Laboratory results interpreted by me: 11/30/18 11/30/18 12/01/18 23:00 23:00 00:50 RDW 14.2 H Seg Neutrophils % 80.0 H Glucose 218 H AST 40 H Lipase 21.1 L Urine Glucose (UA) 50 H Urine Ketones TRACE H - Diagnostic Test Radiology reviewed: Image reviewed, Reports reviewed - EKG Interpretation by Me EKG shows normal: Sinus rhythm Rate: Normal Rhythm: NSR [place]/QRS: Left axis deviation - Borderline prolonged QTC of 488 When compared to previous EKG there are: No significant change Discharge - Discharge Clinical Impression: Abdominal cramping Nausea & vomiting Qualifiers: Vomiting type: unspecified Vomiting Intractability: non-intractable Qualified Code(s): R11.2 - Nausea with vomiting, unspecified Diarrhea Qualifiers: Diarrhea type: unspecified type Qualified Code(s): R19.7 - Diarrhea, unspecified Condition: Good Disposition: HOME, SELF-CARE Instructions: Abdominal Pain ([facility]), Antinausea Medication ([facility]), Diarrhea, Nonspecific ([facility]), Intravenous (IV) Fluids ([facility]), Viral Syndrome ([facility]), Vomiting ([facility]) Additional Instructions: Your symptoms are likely due to a viral illness and should resolve in the next several days. You can take [id number] loperamide also known as Imodium as needed for diarrhea per box instructions. Continue to stay hydrated with plenty of solution such as Gatorade or Pedialyte. You are being prescribed Zofran to take as needed for nausea and vomiting. Please return if you develop severe abdominal pain, pass out, become unable to tolerate any oral fluids for 12 more hours, or any other symptoms that are concerning to you. Prescriptions: Dicyclomine HCl [Bentyl 20 mg Tablet] 20 mg PO Q8H #12 tablet Famotidine [Pepcid 40 mg Tablet] 40 mg PO DAILY 10 Days #10 tablet Ondansetron [Zofran Odt 4 mg Tablet] 1 - 2 tab PO Q4H PRN #15 tab.rapdis PRN Reason: For Nausea/Vomiting Forms: Elevated Blood Pressure Referrals: ROBERT TY PA [NO LOCAL MD] - Follow up as needed
[2018-11-30] MEDS ORDERED: ONDANSETRON HCL 8 MG TABLET PO ONE (23:05)
[2018-11-30] MEDS: RINGERS SOLUTION,LACTATED 1,000 ML IV PRN (23:07)
[2018-11-30 23:12] LABS: ABSOLUTE BASOPHILS # (AUTO) 0.1 10^3/uL (0.0-0.2); ABSOLUTE EOSINOPHILS # (AUTO) 0.1 10^3/uL (0.0-0.6); ABSOLUTE LYMPHOCYTES (AUTO) 1.3 10^3/uL (0.5-4.7); ABSOLUTE MONOCYTES (AUTO) 0.4 10^3/uL (0.1-1.4); ABSOLUTE NEUT (AUTO) 7.3 10^3/uL (1.7-8.2); BASOPHILS % (AUTO) 0.7 % (0-2); HEMOGLOBIN 13.9 g/dL (12.0-15.5); LYMPHOCYTES % (AUTO) 13.9 % (13-45); MEAN CORPUSCULAR HEMOGLOBIN 30.8 pg (27.0-33.4); MEAN CORPUSCULAR VOLUME 93 fl (80-97); MONOCYTES % (AUTO) 4.4 % (3-13); PLATELET COUNT 242 10^3/uL (150-450); RED CELL DISTRIBUTION WIDTH 14.2 % (11.5-14.0); TOTAL CELLS COUNTED % (AUTO) 100 %; WHITE BLOOD COUNT 9.2 10^3/uL (4.0-10.5)
[2018-11-30 23:27] LABS: ALBUMIN 4.2 g/dL (3.5-5.0); ALKALINE PHOSPHATASE 118 U/L (38-126); ANION GAP 11 (5-19); ASPARTATE AMINO TRANSFERASE 40 U/L (14-36); BILIRUBIN,DIRECT 0.4 mg/dL (0.0-0.4); BLOOD UREA NITROGEN 16 mg/dL (7-20); CALCIUM 9.9 mg/dL (8.4-10.2); CARBON DIOXIDE 26 mmol/L (22-30); CHLORIDE 100 mmol/L (98-107); GLUCOSE 218 mg/dL (75-110); POTASSIUM 3.6 mmol/L (3.6-5.0); TOTAL PROTEIN 7.8 g/dL (6.3-8.2)
[2018-12-01] MEDS ORDERED: METOCLOPRAMIDE HCL INJ/PF 10 MG/2 ML SDV IV ONE (00:18)
[2018-12-01] MEDS ORDERED: DIPHENHYDRAMINE HCL 50 MG/ML VIAL IV ONE (00:19)
[2018-12-01] MEDS ORDERED: DICYCLOMINE HCL INJ 20 MG/2 ML AMPULE IM ONE (00:19)
[2018-12-01] MEDS: RINGERS SOLUTION,LACTATED 1,000 ML IV PRN (00:34)
[2018-12-01 01:03] LABS: APPEARANCE,URINE CLEAR; BILIRUBIN,URINE NEGATIVE (NEGATIVE); COLOR,URINE YELLOW; GLUCOSE, URINE 50 mg/dL (NEGATIVE); KETONES,URINE TRACE mg/dL (NEGATIVE); LEUKOCYTE ESTERASE,URINE NEGATIVE (NEGATIVE); NITRITE,URINE NEGATIVE (NEGATIVE); PROTEIN,URINE NEGATIVE (NEGATIVE); URINE SPECIFIC GRAVITY 1.011; UROBILINOGEN,URINE NEGATIVE mg/dL (<2.0)
--- NOTE | 2018-12-01 01:40 | RADIOLOGY REPORT (SQ) ---
EXAM DESCRIPTION: CT ABDOMEN PELVIS WITH IV CONTRAST COMPLETED DATE/TME: 12/01/2018 00:00 CLINICAL HISTORY: Generalized abdominal pain. CREAT 0.85 COMPARISON: None Available. TECHNIQUE: CT of the abdomen and pelvis performed following IV administration of 100 mL of Omnipaque 350. DLP: 2833.41 mGycm FINDINGS: Lung Bases: The visualized lung bases are clear. Bones: Degenerative change of the spine. Postoperative change with right hemilaminectomy at L3-5. Abdomen: Liver: The liver has normal size and density. No intrahepatic mass or biliary dilatation. Gallbladder: Prior cholecystectomy. Spleen, Pancreas, and Adrenal Glands: The spleen, pancreas, and adrenal glands are unremarkable. Kidneys: The kidneys have normal size and contour without evidence of solid mass or hydronephrosis. Vasculature: Aortoiliac atherosclerosis. IVC is unremarkable. The portal vein is patent. The proximal visceral and renal arteries are patent. Stomach: The stomach and duodenum have normal course. Other: No free intraperitoneal air. No free fluid or lymphadenopathy. Pelvis: Bladder: Urinary bladder is unremarkable. Bowel: No dilated loops of large or small bowel. Scattered diverticula of the colon. Appendix: Normal appendix. Pelvis: Uterus is not enlarged. IMPRESSION: 1. No acute inflammatory or obstructive process identified. 2. Diverticulosis without evidence of acute diverticulitis. This exam was performed according to our departmental dose-optimization program, which includes automated exposure control, adjustment of the mA and/or kV according to patient size and/or use of iterative reconstruction technique.
[2018-12-01] MEDS ORDERED: ONDANSETRON HCL INJ/PF 4 MG/2 ML SDV IV ONE (02:27)
[2018-12-01] MEDS ORDERED: CARVEDILOL 12.5 MG TABLET PO ONE (02:28)
[2018-12-01] MEDS ORDERED: CARVEDILOL 6.25 MG TABLET ONE (02:40)
[2018-12-01] MEDS ORDERED: ONDANSETRON ODT 4 MG TAB (6 TAB/ER DISP) PO PRN (03:15)
[2018-12-01 03:56] VITALS: BP 178/72
--- NOTE | 2018-12-01 09:04 | EKG REPORT ---
SEVERITY:- BORDERLINE ECG - SINUS RHYTHM LEFT AXIS DEVIATION BORDERLINE PROLONGED QT INTERVAL : Confirmed by: Kassandra Geller MD 01-Dec-2018 09:03:55
== END 2018-12-01 04:06 | disposition home or self-care (01) ==
LOC: ER 21:54
DX: R10.84 Generalized abdominal pain (principal); R19.7 Diarrhea, unspecified; R11.2 Nausea with vomiting, unspecified; I10 Essential (primary) hypertension; E03.9 Hypothyroidism, unspecified; Z85.3 Personal history of malignant neoplasm of breast; Z88.6 Allergy status to analgesic agent; Z88.3 Allergy status to other anti-infective agents
CPT/HCPCS: 36415; 83690; 85025; 80053; 84484; J3490; J2270; A9270; J7120; S0028; 74177; 81001; 93005; 93010; J0500; J1200; J2405; J2765; S0119

== ENCOUNTER 2018-12-04 13:22 | Emergency (ER) | payer MEDICARE, OTHER ==
[2018-12-04] MEDS ORDERED: NORMAL SALINE 500 ML IV ONE ×2 (13:38→16:14)
[2018-12-04] MEDS ORDERED: ONDANSETRON HCL INJ/PF 4 MG/2 ML SDV IV ONE (13:39)
--- NOTE | 2018-12-04 13:40 | ER Document Report ---
ED Medical Screen (RME) - General Chief Complaint: Nausea/Vomiting Stated Complaint: NAUSEA, VOMITING Time Seen by Provider: 12/04/18 13:38 Primary Care Provider: SRINIVASA BURTON MD [Primary Care Provider] - Follow up as needed Mode of Arrival: Ambulatory Information source: Patient Notes: 73-year-old female presents to ED for complaint of a lower abdomen cramping nausea and vomiting. She states she was here Wednesday for the same symptoms was feeling better before she went home dentist initiate on Wednesday the symptoms returned and they have been here since then. She states she did have back surgery 2 weeks ago for ruptured disc. She is has a history of a left knee replacement gallbladder removal carpal tunnel surgery. She states she took Zofran and Bentyl at 10 AM this morning. She does have a history of high blood pressure. Patient is alert oriented respirations regular and unlabored speaking in full sentences walking with a even steady gait. I have greeted and performed a rapid initial assessment of this patient. A comprehensive ED assessment and evaluation of the patient, analysis of test results and completion of medical decision making process will be conducted by an additional ED providers. TRAVEL OUTSIDE OF THE [place] IN LAST 30 DAYS: No - Related Data Allergies/Adverse Reactions: benazepril Allergy (Verified 08/26/17 07:24) levofloxacin [From Levaquin] Allergy (Verified 08/26/17 07:24) codeine Adverse Reaction (Verified 08/26/17 07:24) Past Medical History - Past Medical History Cardiac Medical History: Reports: Hx Hypertension - ON MEDS Denies: Hx Coronary Artery Disease, Hx Heart Attack Pulmonary Medical History: Denies: Hx Asthma, Hx Bronchitis, Hx COPD, Hx Pneumonia Neurological Medical History: Denies: Hx Cerebrovascular Accident, Hx Seizures Endocrine Medical History: Reports: Hx Hypothyroidism Renal/ Medical History: Denies: Hx Peritoneal Dialysis Musculoskeltal Medical History: Reports Hx Arthritis - RA- GENERALIZED- CONTROLLED ON MEDS Past Surgical History: Reports: Hx Cholecystectomy, Hx Orthopedic Surgery - L Knee replacement, R hand carpal tunnel, Hx Tubal Ligation. Denies: Hx Hysterectomy - Immunizations Immunizations up to date: Yes Hx Diphtheria, Pertussis, Tetanus Vaccination: Yes History of Influenza Vaccine for 01/2017 - 06/2017 Season: Yes Influenza Administration Date for 01/2017 - 06/2017 Season: 03/12/17 Physical Exam - Vital signs Vitals: Temp Pulse Resp BP Pulse Ox 97.8 F 89 18 158/107 H 97 12/04/18 13:33 12/04/18 13:33 12/04/18 13:33 12/04/18 13:33 12/04/18 13:33 Course - Vital Signs Vital signs: Temp Pulse Resp BP Pulse Ox 97.8 F 89 18 158/107 H 97 12/04/18 13:33 12/04/18 13:33 12/04/18 13:33 12/04/18 13:33 12/04/18 13:33 Doctor's Discharge - Discharge Referrals: SRINIVASA BURTON MD [Primary Care Provider] - Follow up as needed
[2018-12-04 14:04] LABS: ABSOLUTE BASOPHILS # (AUTO) 0.1 10^3/uL (0.0-0.2); ABSOLUTE EOSINOPHILS # (AUTO) 0.1 10^3/uL (0.0-0.6); ABSOLUTE MONOCYTES (AUTO) 0.7 10^3/uL (0.1-1.4); ABSOLUTE NEUT (AUTO) 7.9 10^3/uL (1.7-8.2); EOSINOPHILS % (AUTO) 0.7 % (0-6); HEMATOCRIT 41.9 % (36.0-47.0); HEMOGLOBIN 14.4 g/dL (12.0-15.5); LYMPHOCYTES % (AUTO) 18.6 % (13-45); MEAN CORPUSCULAR HEMOGLOBIN 31.6 pg (27.0-33.4); MEAN CORPUSCULAR HGB CONC 34.3 g/dL (32.0-36.0); MEAN CORPUSCULAR VOLUME 92 fl (80-97); MONOCYTES % (AUTO) 6.6 % (3-13); PLATELET COUNT 226 10^3/uL (150-450); RED BLOOD COUNT 4.55 10^6/uL (3.72-5.28); RED CELL DISTRIBUTION WIDTH 13.8 % (11.5-14.0); SEGMENTED NEUTROPHILS % (AUTO) 73.1 % (42-78); TOTAL CELLS COUNTED % (AUTO) 100 %; WHITE BLOOD COUNT 10.8 10^3/uL (4.0-10.5)
[2018-12-04 14:29] LABS: ALBUMIN 4.3 g/dL (3.5-5.0); ALKALINE PHOSPHATASE 118 U/L (38-126); ANION GAP 10 (5-19); ASPARTATE AMINO TRANSFERASE 47 U/L (14-36); BILIRUBIN,DIRECT 0.5 mg/dL (0.0-0.4); BILIRUBIN,TOTAL 1.1 mg/dL (0.2-1.3); BLOOD UREA NITROGEN 14 mg/dL (7-20); CALCIUM 10.2 mg/dL (8.4-10.2); CARBON DIOXIDE 33 mmol/L (22-30); CHLORIDE 92 mmol/L (98-107); GLUCOSE 145 mg/dL (75-110); POTASSIUM 3.9 mmol/L (3.6-5.0); TOTAL PROTEIN 7.7 g/dL (6.3-8.2)
[2018-12-04 15:01] LABS: APPEARANCE,URINE CLEAR; BILIRUBIN,URINE NEGATIVE (NEGATIVE); COLOR,URINE YELLOW; GLUCOSE, URINE NEGATIVE (NEGATIVE); KETONES,URINE NEGATIVE (NEGATIVE); LEUKOCYTE ESTERASE,URINE NEGATIVE (NEGATIVE); NITRITE,URINE NEGATIVE (NEGATIVE); PROTEIN,URINE 100 mg/dL (NEGATIVE); UROBILINOGEN,URINE NEGATIVE mg/dL (<2.0)
--- NOTE | 2018-12-04 16:20 | ER Document Report ---
ED General - General Chief Complaint: Nausea/Vomiting Stated Complaint: NAUSEA, VOMITING Time Seen by Provider: 12/04/18 13:38 Primary Care Provider: SRINIVASA BURTON MD [Primary Care Provider] - Follow up as needed Mode of Arrival: Ambulatory TRAVEL OUTSIDE OF THE [place] IN LAST 30 DAYS: No - HPI Notes: Patient presents with nausea vomiting despite having Zofran at home. Patient was here on Wednesday with normal CT and labs and was discharged. She had slight improvement of her nausea vomiting and resolution of her diarrhea but on Wednesday of this week she began to have nausea and vomiting again. No recent fevers or illnesses no chest pain or shortness of breath. He denies any dysuria - Related Data Allergies/Adverse Reactions: benazepril Allergy (Verified 08/26/17 07:24) levofloxacin [From Levaquin] Allergy (Verified 08/26/17 07:24) codeine Adverse Reaction (Verified 08/26/17 07:24) Past Medical History - General Information source: Patient - Social History Smoking Status: Never Smoker Family History: Arthritis, CAD, DM, Hypertension Patient has suicidal ideation: No Patient has homicidal ideation: No - Past Medical History Cardiac Medical History: Reports: Hx Hypertension - ON MEDS Denies: Hx Coronary Artery Disease, Hx Heart Attack Pulmonary Medical History: Denies: Hx Asthma, Hx Bronchitis, Hx COPD, Hx Pneumonia Neurological Medical History: Denies: Hx Cerebrovascular Accident, Hx Seizures Endocrine Medical History: Reports: Hx Hypothyroidism Renal/ Medical History: Denies: Hx Peritoneal Dialysis Musculoskeletal Medical History: Reports Hx Arthritis - RA- GENERALIZED- CONTROLLED ON MEDS Past Surgical History: Reports: Hx Cholecystectomy, Hx Orthopedic Surgery - L Knee replacement, R hand carpal tunnel, Hx Tubal Ligation. Denies: Hx Hysterectomy - Immunizations Immunizations up to date: Yes Hx Diphtheria, Pertussis, Tetanus Vaccination: Yes Hx Pneumococcal Vaccination: 04/12/16 Physical Exam - Vital signs Vitals: Temp Pulse Resp BP Pulse Ox 97.8 F 89 18 158/107 H 97 12/04/18 13:33 12/04/18 13:33 12/04/18 13:33 12/04/18 13:33 12/04/18 13:33 Course - Re-evaluation Re-evalutation: 12/04/18 17:33 12/04/18 17:25 I did provide patient option for observation overnight to see if her nausea and vomiting subside however, She was provided Reglan states that she is to help with her nausea has not vomited since.. Will be discharged at this time with prescription of Reglan as well as Phenergan if needed as back-up. Return precautions provided. 12/04/18 17:26 - Vital Signs Vital signs: Temp Pulse Resp BP Pulse Ox 97.8 F 89 18 158/107 H 97 12/04/18 13:33 12/04/18 13:33 12/04/18 13:33 12/04/18 13:33 12/04/18 13:33 - Laboratory Result Diagrams: 12/04/18 13:45 12/04/18 13:45 Laboratory results interpreted by me: 12/04/18 12/04/18 12/04/18 13:45 13:45 14:40 WBC 10.8 H Sodium 134.6 L Chloride 92 L Carbon Dioxide 33 H Glucose 145 H Direct Bilirubin 0.5 H AST 47 H Urine Protein 100 H Discharge - Discharge Clinical Impression: Nausea and vomiting Qualifiers: Vomiting type: unspecified Vomiting Intractability: non-intractable Qualified Code(s): R11.2 - Nausea with vomiting, unspecified Condition: Good Disposition: HOME, SELF-CARE Instructions: Reglan ([facility]), Vomiting ([facility]) Additional Instructions: I use Reglan as instructed. If vomiting or not improving you can switch to Phenergan. Prescriptions: Promethazine HCl [Phenergan 25 mg Tablet] 1 tab PO Q6H PRN #15 tablet PRN Reason: Metoclopramide HCl [Reglan 10 mg Tablet] 1 tab PO ASDIR PRN #20 tablet PRN Reason: Referrals: SRINIVASA BURTON MD [Primary Care Provider] - Follow up as needed
--- NOTE | 2018-12-04 16:45 | RADIOLOGY REPORT (SQ) ---
EXAM DESCRIPTION: CT ABD/PELVIS WITH IV ONLY COMPLETED DATE/TIME: 12/04/2018 4:25 pm REASON FOR STUDY: abd pain, N/V . Bilateral lower quadrants pain. Prior cholecystectomy. COMPARISON: CT abdomen and pelvis 12/01/2018. TECHNIQUE: CT scan of the abdomen and pelvis performed using helical scanning technique with dynamic intravenous contrast injection. No oral contrast. Images reviewed with lung, soft tissue, and bone windows. Reconstructed coronal and sagittal MPR images reviewed. Delayed images for evaluation of the urinary system also acquired. All images stored on PACS. All CT scanners at this facility use dose modulation, iterative reconstruction, and/or weight based d osing when appropriate to reduce radiation dose to as low as reasonably achievable (ALARA). [facility]: Dose Right [facility]: CareDose [facility]: Dose Right [facility]: Teradose 4D [facility]: doo CONTRAST TYPE AND DOSE: contrast/concentration: Isovue 350.00 mg/ml; Total Contrast Delivered: 100.0 ml; Total Saline Delivered: 72.0 ml RENAL FUNCTION: Creatinine 0.81 RADIATION DOSE: CT Rad equipment meets quality standard of care and radiation dose reduction techniq ues were employed. CTDIvol: 20.1 - 20.6 mGy. DLP: 2139 mGy-cm.. LIMITATIONS: None. FINDINGS: LOWER CHEST: No consolidation or pleural effusion. LIVER: Normal size. No masses. No dilated ducts. SPLEEN: Normal size. PANCREAS: No significant calcifications. No adjacent inflammation or peripancreatic fluid collections . Pancreatic duct not dilated. GALLBLADDER: Surgically absent. ADRENAL GLANDS: No significant masses or asymmetry. RIGHT KIDNEY AND URETER: No solid masses. No significant calcifications. No hydronephrosis or hyd roureter. LEFT KIDNEY AND URETER: No solid masses. No significant calcifications. No hydronephrosis or hydr oureter. AORTA AND VESSELS: No abdominal aortic aneurysm or evidence for acute dissection. RETROPERITONEUM: No retroperitoneal adenopathy, hemorrhage or masses. BOWEL AND PERITONEAL CAVITY: No dilated bowel loops to suggest obstruction. No focal inflammatory ch anges. There is colonic diverticulosis with no CT evidence for acute diverticulitis. No free fluid or free air. APPENDIX: Normal. PELVIS: The urinary bladder is distended. The uterus is present. No free fluid. ABDOMINAL WALL: There is a small fat containing umbilical hernia. BONES: Multilevel degenerative changes at the spine. Postsurgical changes of right hemilaminectomy a t the lower lumbar spine. IMPRESSION: 1. No acute findings in the abdomen or pelvis. 2. Colonic diverticulosis. TECHNICAL DOCUMENTATION: JOB ID: [id number] MT-64 Quality ID # [id number]: Final reports with documentation of one or more dose reduction techniques (e.g., Au tomated exposure control, adjustment of the mA and/or kV according to patient size, use of iterative reconstruction technique) 2010 [employer]- All Rights Reserved Reading location - IP/workstation name: [email or web address]
[2018-12-04] MEDS ORDERED: METOCLOPRAMIDE HCL INJ/PF 10 MG/2 ML SDV IV ONE (16:46)
[2018-12-04 18:02] VITALS: BP 116/65
== END 2018-12-04 18:01 | disposition home or self-care (01) ==
LOC: ER 13:22
DX: R11.2 Nausea with vomiting, unspecified (principal); R10.30 Lower abdominal pain, unspecified; I10 Essential (primary) hypertension; Z90.49 Acquired absence of other specified parts of digestive tract; Z88.6 Allergy status to analgesic agent; Z96.652 Presence of left artificial knee joint; Z98.51 Tubal ligation status
CPT/HCPCS: 99284; 96361; 96374; 96375; 36415; 83690; 85025; 80053; 81001; 74177; J2765; J2405; J7040

== ENCOUNTER 2018-12-08 12:31 | Inpatient (IN) | payer MEDICARE, OTHER ==
[2018-12-08 13:29] LABS: APPEARANCE,URINE SLIGHTLY-CLOUDY; BILIRUBIN,URINE NEGATIVE (NEGATIVE); COLOR,URINE YELLOW; GLUCOSE, URINE 50 mg/dL (NEGATIVE); KETONES,URINE NEGATIVE (NEGATIVE); LEUKOCYTE ESTERASE,URINE NEGATIVE (NEGATIVE); NITRITE,URINE NEGATIVE (NEGATIVE); PROTEIN,URINE 100 mg/dL (NEGATIVE); URINE SPECIFIC GRAVITY 1.012; UROBILINOGEN,URINE NEGATIVE mg/dL (<2.0)
[2018-12-08 13:44] LABS: ABSOLUTE BASOPHILS # (AUTO) 0.1 10^3/uL (0.0-0.2); ABSOLUTE EOSINOPHILS # (AUTO) 0.1 10^3/uL (0.0-0.6); ABSOLUTE LYMPHOCYTES (AUTO) 2.2 10^3/uL (0.5-4.7); ABSOLUTE MONOCYTES (AUTO) 1.1 10^3/uL (0.1-1.4); ABSOLUTE NEUT (AUTO) 7.6 10^3/uL (1.7-8.2); BASOPHILS % (AUTO) 1.2 % (0-2); EOSINOPHILS % (AUTO) 0.6 % (0-6); HEMATOCRIT 46.5 % (36.0-47.0); HEMOGLOBIN 15.4 g/dL (12.0-15.5); LYMPHOCYTES % (AUTO) 19.9 % (13-45); MEAN CORPUSCULAR HEMOGLOBIN 30.7 pg (27.0-33.4); MEAN CORPUSCULAR HGB CONC 33.1 g/dL (32.0-36.0); MEAN CORPUSCULAR VOLUME 93 fl (80-97); MONOCYTES % (AUTO) 9.8 % (3-13); RED BLOOD COUNT 5.02 10^6/uL (3.72-5.28); SEGMENTED NEUTROPHILS % (AUTO) 68.5 % (42-78); TOTAL CELLS COUNTED % (AUTO) 100 %; WHITE BLOOD COUNT 11.2 10^3/uL (4.0-10.5)
[2018-12-08 14:01] LABS: ALBUMIN 3.8 g/dL (3.5-5.0); ALKALINE PHOSPHATASE 100 U/L (38-126); ANION GAP 11 (5-19); ASPARTATE AMINO TRANSFERASE 46 U/L (14-36); BILIRUBIN,DIRECT 0.5 mg/dL (0.0-0.4); BLOOD UREA NITROGEN 17 mg/dL (7-20); CALCIUM 9.8 mg/dL (8.4-10.2); CARBON DIOXIDE 29 mmol/L (22-30); CHLORIDE 96 mmol/L (98-107); CREATINE KINASE 145 U/L (30-135); GLUCOSE 184 mg/dL (75-110); TOTAL PROTEIN 6.9 g/dL (6.3-8.2)
[2018-12-08 14:03] LABS: POTASSIUM 2.6 mmol/L (3.6-5.0)
[2018-12-08 14:07] LABS: PLATELET COUNT 260 10^3/uL (150-450)
[2018-12-08] MEDS ORDERED: POTASSIUM CHLORIDE 10 MEQ CAPSULE.ER PO ONE (14:09)
[2018-12-08 14:14] LABS: CREATINE KINASE MB 1.64 ng/mL (<4.55)
[2018-12-08 14:16] LABS: TROPONIN I 0.085 ng/mL
--- NOTE | 2018-12-08 14:36 | ER Document Report ---
ED Medical Screen (RME) - General Chief Complaint: Near Syncope Stated Complaint: SYNCOPE Time Seen by Provider: 12/08/18 14:31 Primary Care Provider: SRINIVASA BURTON MD [Primary Care Provider] - Follow up as needed Mode of Arrival: Medic Information source: Patient Notes: 73-year-old female presented to ED for complaint of syncopal episode at the doctor's office. She was sent over by EMS after passing out in the doctor's office. She states she was here on the Wednesday last week and then again on Wednesday for nausea and vomiting. She was discharged home both times with a virus. At this time she is already had a EKG which shows A. fib and labs which showed a BUN of 17 creatinine of 1.38 potassium of 2.6 and a troponin of 0.085. Patient is alert oriented respirations regular and unlabored speaking in full sentences at this time. I have reported these values to Dr. Winters as well as ensuring that the patient is on a monitor. Patient has been given 40 mEq of potassium by mouth. She has been treated with Zofran by the EMS and I will start a IV of 500 cc normal saline until she can be picked up by another provider. I have greeted and performed a rapid initial assessment of this patient. A comprehensive ED assessment and evaluation of the patient, analysis of test results and completion of medical decision making process will be conducted by an additional ED providers. TRAVEL OUTSIDE OF THE [place] IN LAST 30 DAYS: No - Related Data Allergies/Adverse Reactions: benazepril Allergy (Verified 08/26/17 07:24) levofloxacin [From Levaquin] Allergy (Verified 08/26/17 07:24) codeine Adverse Reaction (Verified 08/26/17 07:24) Past Medical History - Past Medical History Cardiac Medical History: Reports: Hx Hypertension - ON MEDS Denies: Hx Coronary Artery Disease, Hx Heart Attack Pulmonary Medical History: Denies: Hx Asthma, Hx Bronchitis, Hx COPD, Hx Pneumonia Neurological Medical History: Denies: Hx Cerebrovascular Accident, Hx Seizures Endocrine Medical History: Reports: Hx Hypothyroidism Renal/ Medical History: Denies: Hx Peritoneal Dialysis Musculoskeltal Medical History: Reports Hx Arthritis - RA- GENERALIZED- CONTROLLED ON MEDS Past Surgical History: Reports: Hx Cholecystectomy, Hx Orthopedic Surgery - L Knee replacement, R hand carpal tunnel, Hx Tubal Ligation. Denies: Hx Hysterectomy - Immunizations Immunizations up to date: Yes Hx Diphtheria, Pertussis, Tetanus Vaccination: Yes History of Influenza Vaccine for 01/2017 - 06/2017 Season: Yes Influenza Administration Date for 01/2017 - 06/2017 Season: 03/12/17 Physical Exam - Vital signs Vitals: Pulse BP Pulse Ox 39 L 106/65 95 12/08/18 12:38 12/08/18 12:38 12/08/18 12:38 Course - Vital Signs Vital signs: Temp Pulse Resp BP Pulse Ox 98.9 F 39 L 106/65 95 12/08/18 13:54 12/08/18 12:38 12/08/18 12:38 12/08/18 12:38 - Laboratory Result Diagrams: 12/08/18 13:29 12/08/18 13:29 Laboratory results interpreted by me: 12/08/18 12/08/18 12/08/18 13:00 13:29 13:29 WBC 11.2 H Sodium 135.7 L Potassium 2.6 L* Chloride 96 L Creatinine 1.38 H Est GFR ( Amer) 46 L Est GFR (MDRD) Non-Af 38 L Glucose 184 H Direct Bilirubin 0.5 H AST 46 H Creatine Kinase 145 H Urine Protein 100 H Urine Glucose (UA) 50 H Doctor's Discharge - Discharge Referrals: SRINIVASA BURTON MD [Primary Care Provider] - Follow up as needed
[2018-12-08] MEDS ORDERED: NORMAL SALINE 1000 ML 1,000 ML IV ONE (15:17)
[2018-12-08] MEDS ORDERED: RINGERS SOLUTION,LACTATED 1,000 ML IV ONE (15:18)
[2018-12-08] MEDS ORDERED: POTASSI CL 20 MEQ/50 ML RIDER 20 MEQ/50 ML RTUPB IV ONE ×3 (15:20→17:00)
--- NOTE | 2018-12-08 15:21 | ER Document Report ---
ED General - General Stated Complaint: SYNCOPE Time Seen by Provider: 12/08/18 14:31 Mode of Arrival: Medic Notes: Patient is a 73-year-old female who presents to the emergency department with a syncopal episode at her oncologist office. This happened this morning. She has been vomiting for the past week. She states that she was seen here on the in 04 December, was rehydrated, but continues to have the same symptoms. She denies any pain at this time, but states that she does feel tired. She has a past medical history of atrial fibrillation, rheumatoid arthritis, hypothyroidism, hypertension, back surgeries, and breast cancer, but is in remission. She denies any chest pain, shortness of breath, difficulty breathing, or any other symptoms at this time. TRAVEL OUTSIDE OF THE [place] IN LAST 30 DAYS: No - Related Data Allergies/Adverse Reactions: benazepril Allergy (Verified 08/26/17 07:24) levofloxacin [From Levaquin] Allergy (Verified 08/26/17 07:24) codeine Adverse Reaction (Verified 08/26/17 07:24) Past Medical History - General Information source: Patient - Social History Smoking Status: Unknown if Ever Smoked Family History: Arthritis, CAD, DM, Hypertension Patient has suicidal ideation: No Patient has homicidal ideation: No - Past Medical History Cardiac Medical History: Reports: Hx Hypertension - ON MEDS Denies: Hx Coronary Artery Disease, Hx Heart Attack Pulmonary Medical History: Denies: Hx Asthma, Hx Bronchitis, Hx COPD, Hx Pneumonia Neurological Medical History: Denies: Hx Cerebrovascular Accident, Hx Seizures Endocrine Medical History: Reports: Hx Hypothyroidism Renal/ Medical History: Denies: Hx Peritoneal Dialysis Musculoskeletal Medical History: Reports Hx Arthritis - RA- GENERALIZED- CONTROLLED ON MEDS Past Surgical History: Reports: Hx Cholecystectomy, Hx Orthopedic Surgery - L Knee replacement, R hand carpal tunnel, Hx Tubal Ligation. Denies: Hx Hysterectomy - Immunizations Immunizations up to date: Yes Hx Diphtheria, Pertussis, Tetanus Vaccination: Yes Hx Pneumococcal Vaccination: 04/12/16 Review of Systems - Review of Systems Notes: REVIEW OF SYSTEMS: CONSTITUTIONAL : Denies recent illness. Denies recent unintentional weight loss. Denies fever, chills, or sweats. EENT: Denies eye, ear, throat, or mouth pain, discharge, or symptoms. Denies nasal or sinus congestion. CARDIOVASCULAR: Denies chest pain. RESPIRATORY: Denies shortness of breath, cough, congestion, difficulty breathing, or wheezing. GASTROINTESTINAL: See HPI GENITOURINARY: Denies difficulty urinating, burning, blood in urine, urgency or frequency. MUSCULOSKELETAL: Denies neck and back pain. Denies joint pain or swelling. SKIN: Denies rash, itchiness, or lesions HEMATOLOGIC : Denies easy bruising or bleeding. LYMPHATIC: Denies swollen, painful, enlarged glands. NEUROLOGICAL: Denies no numbness or tingling denies weakness. Denies headache. Denies altered mental status. Denies alteration in speech. PSYCHIATRIC: Denies stress, anxiety, alteration in sleep patterns, or depression. All other systems reviewed and negative. Physical Exam - Vital signs Vitals: Pulse BP Pulse Ox 39 L 106/65 95 12/08/18 12:38 12/08/18 12:38 12/08/18 12:38 - Notes Notes: PHYSICAL EXAMINATION: GENERAL: Appears well, healthy, well-nourished, no acute distress. HEAD: Normocephalic, atraumatic. EYES: PERRL, conjunctiva normal, all extraocular movements intact, sclera nonicteric ENT: Dry mucous membranes. NECK: Supple, no noticeable swelling, redness, rash. Normal range of motion. LUNGS: Equal breath sounds bilaterally and clear to auscultation. No wheezes r ales or rhonchi. CARDIOVASCULAR: Irregular rhythm. Regular rate. Radial pulses 2+, normal. ABDOMEN: Normoactive bowel sounds. Soft, nontender, no guarding, no rebound tenderness, and no masses palpated. EXTREMITIES: Normal strength and range of motion, no pitting or edema. No cyanosis. NEUROLOGICAL: Moves all extremities upon command. Strength 5/5 in all extremities. PSYCH: Normal mood, normal affect. SKIN: Warm, dry. No rash, lesions, ulcerations noted. Normal skin turgor. Course - Re-evaluation Re-evalutation: 12/08/18 15:15 Patient hematology shows a mild leukocytosis of 11,200. Her hemoglobin hematocrit are stable at 15.4 and 46.5. Chemistries show a potassium of 2.6. She will receive 40 MEQ's of oral potassium and 40 MEQ's of potassium intravenously. Patient has an acute kidney injury with a creatinine of 1.38. When she was here on 04 December, she had a normal creatinine. Her CK is mildly elevated at 145. Her urinalysis shows protein in her urine consistent with dehydration. States that the patient having 2- CT scans within the past week and a half, showing diverticulosis, I will not resend her for CT of the abdomen pelvis. Patient's abdominal exam is benign. At this time, I will call Dr. Moreno for admission. 12/08/18 15:[address] Moreno due to the patient having an acute kidney injury. Dr. Moreno will admit the patient to [facility]. - Vital Signs Vital signs: Temp Pulse Resp BP Pulse Ox 98.2 F 107 H 16 150/97 H 90 L 12/09/18 08:37 12/09/18 08:37 12/09/18 08:37 12/09/18 08:37 12/09/18 08:37 - Laboratory Result Diagrams: 12/09/18 04:54 12/09/18 04:54 Laboratory results interpreted by me: 12/08/18 12/08/18 12/08/18 13:00 13:29 13:29 WBC 11.2 H Sodium 135.7 L Potassium 2.6 L* Chloride 96 L Creatinine 1.38 H Est GFR ( Amer) 46 L Est GFR (MDRD) Non-Af 38 L Glucose 184 H Hemoglobin A1c % Direct Bilirubin 0.5 H AST 46 H Creatine Kinase 145 H TSH Urine Protein 100 H Urine Glucose (UA) 50 H 12/08/18 12/08/18 13:29 13:29 WBC Sodium Potassium Chloride Creatinine Est GFR ( Amer) Est GFR (MDRD) Non-Af Glucose Hemoglobin A1c % 6.2 H Direct Bilirubin AST Creatine Kinase TSH 7.76 H Urine Protein Urine Glucose (UA) - EKG Interpretation by Me Additional EKG results interpreted by me: 12/08/18 15:31 Atrial fibrillation. Rate 114. QRS 94; QT 372; QTc 513. Discharge - Discharge Clinical Impression: Hypokalemia, Dehydration Condition: Fair Disposition: ADMITTED INPATIENT Admitting Provider: Tiffanie (Hospitalist) Unit Admitted: [facility]
[2018-12-08] MEDS ORDERED: NORMAL SALINE 1000 ML 1,000 ML IV PRN (16:06)
[2018-12-08] MEDS ORDERED: GLUCAGON,HUMAN RECOMB 1 MG INJ IM PRN (16:09)
[2018-12-08] MEDS ORDERED: DEXTROSE 40% GEL 15 GM TUBE PO PRN ×2 (16:09)
[2018-12-08] MEDS ORDERED: DEXTROSE 50%-WATER 25 GM/50 ML DISP.SYRIN IV PRN ×2 (16:09)
--- NOTE | 2018-12-08 16:20 | PDOC H&P ---
History of Present Illness Admission Date/PCP: 12/08/18 15:34 SRINIVASA BURTON MD Patient complains of: presyncope History of Present Illness: CRISTINO HANNAH is a 73 year old female with a past medical history of breast cancer in remission, chronic atrial fibrillation on Eliquis, hypertension, diet- controlled diabetes mellitus, rheumatoid arthritis and hypertension who presented with presyncope. Patient says that she started having multiple episodes of nausea and vomiting associated with loose stools for the past 8 days. She had 2 recent ER visits for this for which she also had a CT of the abdomen and pelvis which was unremarkable. She says that the nausea and vomiting did not really significantly improve. She says that the loose stools have improved but she still had an episode of loose, nonbloody stool earlier this morning. She says she has not been eating or drinking a lot at home as she continues to have nausea and retching. She had a routine follow-up appointment with Dr. Stone for her breast cancer earlier this morning. On her way out of the car she says she felt lightheaded and dizzy and almost passed out but did not have syncope per se. In the clinic, when her weight was taken she also is large and almost passed out when she stood up to stand on the scale hence was sent to the ER. Upon encounter, she appears comfortable in bed. She denies any chest pain or shortness of breath. She is currently not having any dizziness or lightheadedness or headache. Past Medical History Cardiac Medical History: Reports: Hypertension - ON MEDS Denies: Coronary Artery Disease, Myocardial Infarction Pulmonary Medical History: Denies: Asthma, Bronchitis, Chronic Obstructive Pulmonary Disease (COPD), Pneumonia Neurological Medical History: Denies: Seizures Endocrine Medical History: Reports: Hypothyroidism Musculoskeltal Medical History: Reports: Arthritis - RA- GENERALIZED- CONTROLLED ON MEDS Hematology: Denies: Anemia Past Surgical History Past Surgical History: Reports: Cholecystectomy, Orthopedic Surgery - L Knee replacement, R hand carpal tunnel, Tubal Ligation Denies: Hysterectomy Social History Smoking Status: Unknown if Ever Smoked Family History Family History: Arthritis, CAD, DM, Hypertension Parental Family History Reviewed: Yes - No premature CAD Children Family History Reviewed: No Sibling(s) Family History Reviewed.: No Medication/Allergy Home Medications: Levothyroxine Sodium [Synthroid] 12.5 mcg PO DAILY 07/15/13 Magnesium Oxide 400 mg PO QHS 07/15/13 Pantoprazole Sodium 40 mg PO DAILY 07/15/13 Amlodipine Besylate 5 mg PO DAILY 06/02/17 Aspirin [Aspirin 325 mg Tablet] 325 mg PO DAILY 06/02/17 Bumetanide 1 mg PO DAILY 06/02/17 Carvedilol 25 mg PO BID 06/02/17 Celecoxib 200 mg PO DAILY 06/02/17 Cyanocobalamin (Vitamin B-12) [Vitamin B12] 2,500 mcg PO DAILY 06/02/17 Ergocalciferol (Vitamin D2) [Vitamin D2] 50,000 unit PO ASDIR PRN 06/02/17 Leflunomide 20 mg PO DAILY 06/02/17 Losartan Potassium 25 mg PO DAILY 06/02/17 Metformin HCl [Metformin HCl ER] 750 mg PO DAILY 06/02/17 Vitamin E (Dl, Acetate) [Vitamin E 400 Unit Capsule] 400 unit PO DAILY 06/02/17 Cancer Medication 1 tab PO DAILY 08/26/17 Dicyclomine HCl [Bentyl 20 mg Tablet] 20 mg PO Q8H #12 tablet 12/01/18 Famotidine [Pepcid 40 mg Tablet] 40 mg PO DAILY 10 Days #10 tablet 12/01/18 Ondansetron [Zofran Odt 4 mg Tablet] 1 - 2 tab PO Q4H PRN #15 tab.rapdis 12/01/18 Metoclopramide HCl [Reglan 10 mg Tablet] 1 tab PO ASDIR PRN #20 tablet 12/04/18 Promethazine HCl [Phenergan 25 mg Tablet] 1 tab PO Q6H PRN #15 tablet 12/04/18 Allergies/Adverse Reactions: benazepril Allergy (Verified 08/26/17 07:24) levofloxacin [From Levaquin] Allergy (Verified 08/26/17 07:24) codeine Adverse Reaction (Verified 08/26/17 07:24) Review of Systems All systems: reviewed and no additional remarkable complaints except as stated - As mentioned in HPI Physical Exam Vital Signs: Temp Pulse Resp BP Pulse Ox 98.9 F 39 L 106/65 95 12/08/18 13:54 12/08/18 12:38 12/08/18 12:38 12/08/18 12:38 Intake & Output 12/07/18 12/08/1819 06:59 06:59 06:59 Weight 212 lb 4.882 oz General appearance: PRESENT: no acute distress, well-developed, well-nourished Head exam: PRESENT: atraumatic, normocephalic Eye exam: PRESENT: conjunctiva pink, EOMI, PERRLA. ABSENT: scleral icterus Ear exam: PRESENT: normal external ear exam Mouth exam: PRESENT: moist, tongue midline Neck exam: ABSENT: carotid bruit, JVD, lymphadenopathy, thyromegaly Respiratory exam: PRESENT: clear to auscultation yamilex. ABSENT: rales, rhonchi, wheezes Cardiovascular exam: PRESENT: RRR. ABSENT: diastolic murmur, rubs, systolic murmur Pulses: PRESENT: normal dorsalis pedis pul GI/Abdominal exam: PRESENT: normal bowel sounds, soft. ABSENT: distended, guarding, mass, organolmegaly, rebound, tenderness Rectal exam: PRESENT: deferred Extremities exam: PRESENT: full ROM. ABSENT: calf tenderness, clubbing, pedal edema Neurological exam: PRESENT: alert, awake, oriented to person, oriented to place, oriented to time, oriented to situation, CN II-XII grossly intact. ABSENT: motor sensory deficit Results Laboratory Results: 12/08/18 13:29 12/08/18 13:29 12/08/18 12/08/18 12/08/18 13:00 13:29 13:29 WBC 11.2 H RBC 5.02 Hgb 15.4 Hct 46.5 MCV 93 MCH 30.7 MCHC 33.1 RDW 14.0 Plt Count 260 Seg Neutrophils % 68.5 Sodium 135.7 L Potassium 2.6 L* Chloride 96 L Carbon Dioxide 29 Anion Gap 11 BUN 17 Creatinine 1.38 H Est GFR ( Amer) 46 L Glucose 184 H Calcium 9.8 Total Bilirubin 1.0 AST 46 H Alkaline Phosphatase 100 Total Protein 6.9 Albumin 3.8 Urine Color YELLOW Urine Appearance SLIGHTLY-CLOUDY Urine pH 6.0 Ur Specific Winters 1.012 Urine Protein 100 H Urine Glucose (UA) 50 H Urine Ketones NEGATIVE Urine Blood NEGATIVE Urine Nitrite NEGATIVE Ur Leukocyte Esterase NEGATIVE Urine WBC (Auto) 5 Urine RBC (Auto) 1 12/08/18 12/08/18 13:29 13:29 Creatine Kinase 145 H CK-MB (CK-2) 1.64 Troponin I 0.085 Assessment and Plan - Diagnosis (1) Pre-syncope Is this a current diagnosis for this admission?: Yes Plan: Likely related to volume depletion and hypokalemia. She does appear dehydrated. We will start her on IV fluids. We will also check orthostatic vital signs. (2) Acute kidney injury Is this a current diagnosis for this admission?: Yes Plan: We will continue IV fluids. Recheck BMP. (3) Vomiting and diarrhea Is this a current diagnosis for this admission?: Yes Plan: We will add Zofran as needed. She continues to have loose stools, we will check for C. difficile and also send for stool WBC and culture. (4) Chronic atrial fibrillation Is this a current diagnosis for this admission?: Yes Plan: Resume Eliquis. (5) Hypothyroidism Is this a current diagnosis for this admission?: Yes Plan: Resume Synthroid. (6) Hypertension Is this a current diagnosis for this admission?: Yes Plan: Hold home meds for now as her blood pressures are on the low normal in. (7) Dehydration Is this a current diagnosis for this admission?: Yes Plan: IV fluids as mentioned. (8) Hypokalemia Is this a current diagnosis for this admission?: Yes Plan: Currently getting 40 meqs p.o. and 60 meqs IV. Will also check a magnesium level.
--- NOTE | 2018-12-08 16:22 | ADVANCED CARE ---
- Diagnosis (1) Pre-syncope Diagnosis Current: Yes (2) Acute kidney injury Diagnosis Current: Yes (3) Chronic atrial fibrillation Diagnosis Current: Yes (4) Dehydration Diagnosis Current: Yes (5) Hypertension Diagnosis Current: Yes (6) Hypokalemia Diagnosis Current: Yes (7) Hypothyroidism Diagnosis Current: Yes (8) Vomiting and diarrhea Diagnosis Current: Yes Resuscitation Status: Do Not Resuscitate Discussion: Discussed with patient with son and at the bedside. She says that she already has an advanced directive and that she is DNR/DNI and does not want chest compressions, defibrillation or mechanical ventilation if the need arises. She says that her , Guille is her surrogate medical decision maker.
[2018-12-08] MEDS: APIXABAN 2.5 MG TABLET PO SCH (18:38)
[2018-12-08] MEDS: NORMAL SALINE 1000 ML 1,000 ML IV PRN (18:39)
--- NOTE | 2018-12-08 19:12 | EKG REPORT ---
SEVERITY:- ABNORMAL ECG - ATRIAL FIBRILLATION, V-RATE [id number] LEFT ANTERIOR FASCICULAR BLOCK PROBABLE LVH WITH SECONDARY REPOL ABNRM PROLONGED QT INTERVAL : Confirmed by: Christopher Nunez MD 08-Dec-2018 19:11:33
[2018-12-08] MEDS: INSULIN LISPRO 100 UNIT/ML 3 ML VIAL SUBCUT SCH (21:37)
[2018-12-08] MEDS ORDERED: HEPARIN SOD (PORCINE) 5,000 UNIT/ML 1 ML VIAL SUBCUT SCH (22:00)
[2018-12-08] MEDS: ONDANSETRON HCL INJ/PF 4 MG/2 ML SDV IV PRN (23:23)
[2018-12-09] MEDS: PROMETHAZINE HCL 25 MG TABLET PO PRN (05:06)
[2018-12-09] MEDS: NORMAL SALINE 1000 ML 1,000 ML IV PRN ×2 (05:07→19:42)
[2018-12-09 05:22] LABS: ABSOLUTE BASOPHILS # (AUTO) 0.1 10^3/uL (0.0-0.2); ABSOLUTE EOSINOPHILS # (AUTO) 0.1 10^3/uL (0.0-0.6); ABSOLUTE LYMPHOCYTES (AUTO) 2.8 10^3/uL (0.5-4.7); ABSOLUTE MONOCYTES (AUTO) 1.1 10^3/uL (0.1-1.4); ABSOLUTE NEUT (AUTO) 4.1 10^3/uL (1.7-8.2); BASOPHILS % (AUTO) 0.7 % (0-2); EOSINOPHILS % (AUTO) 0.9 % (0-6); HEMATOCRIT 41.5 % (36.0-47.0); HEMOGLOBIN 13.7 g/dL (12.0-15.5); LYMPHOCYTES % (AUTO) 34.4 % (13-45); MEAN CORPUSCULAR HEMOGLOBIN 30.7 pg (27.0-33.4); MEAN CORPUSCULAR HGB CONC 33.1 g/dL (32.0-36.0); MEAN CORPUSCULAR VOLUME 93 fl (80-97); MONOCYTES % (AUTO) 13.6 % (3-13); PLATELET COUNT 166 10^3/uL (150-450); RED BLOOD COUNT 4.47 10^6/uL (3.72-5.28); RED CELL DISTRIBUTION WIDTH 13.9 % (11.5-14.0); SEGMENTED NEUTROPHILS % (AUTO) 50.4 % (42-78); TOTAL CELLS COUNTED % (AUTO) 100 %; WHITE BLOOD COUNT 8.2 10^3/uL (4.0-10.5)
[2018-12-09 06:14] LABS: ANION GAP 11 (5-19); BLOOD UREA NITROGEN 23 mg/dL (7-20); CALCIUM 9.2 mg/dL (8.4-10.2); CARBON DIOXIDE 27 mmol/L (22-30); CHLORIDE 99 mmol/L (98-107); GLUCOSE 138 mg/dL (75-110); POTASSIUM 3.3 mmol/L (3.6-5.0)
[2018-12-09] MEDS: INSULIN LISPRO 100 UNIT/ML 3 ML VIAL SUBCUT SCH ×4 (08:21→21:21)
[2018-12-09] MEDS: APIXABAN 2.5 MG TABLET PO SCH ×2 (09:15→17:07)
[2018-12-09] MEDS ORDERED: POTASSIUM CHLORIDE 20 MEQ PACKET PO SCH (10:00)
[2018-12-09] MEDS ORDERED: POTASSIUM CHLORIDE 10 MEQ CAPSULE.ER PO ONE ×2 (10:09→12:33)
[2018-12-09] MEDS ORDERED: CYCLOBENZAPRINE HCL 10 MG TABLET PO PRN (10:10)
[2018-12-09 10:26] LABS: FREE T3 2.93 pg/mL (2.77-5.27); FREE T4 (FREE THYROXINE) 2.17 ng/dL (0.78-2.19)
[2018-12-09] MEDS: LOSARTAN POTASSIUM 50 MG TABLET PO SCH (12:35)
[2018-12-09] MEDS: CARVEDILOL 12.5 MG TABLET PO SCH ×2 (12:36→21:24)
[2018-12-09] MEDS: OXYCODONE HCL IR 5 MG TABLET PO SCH ×3 (12:55→23:59)
[2018-12-09] MEDS: METOCLOPRAMIDE HCL 10 MG TABLET PO SCH ×3 (12:55→21:23)
[2018-12-09] MEDS: SUCRALFATE 1 GM TABLET PO SCH ×2 (16:10→21:28)
[2018-12-09] MEDS: DICYCLOMINE HCL 20 MG TABLET PO SCH ×2 (16:11→21:23)
--- NOTE | 2018-12-09 16:47 | PDOC PROGRESS REPORT ---
Subjective Progress Note for:: 12/09/18 Subjective:: CRISTINO HANNAH is a 73 year old female with a past medical history of breast cancer in remission, chronic atrial fibrillation on Eliquis, hypertension, diet-controlled diabetes mellitus, rheumatoid arthritis and hypertension who was admitted 12/08/2018 for presyncope related to dehydration. Patient was seen on morning rounds with family members present. She is found resting in bed comfortably on room air. She is complaining about continued nausea and inability to tolerate p.o. fluids, however, is noted to be drinking a Pepsi during my assessment. She reports vague abdominal discomfort, nonspecific, without aggravating or alleviating factors. She denies recent fever, chills, chest pain, palpitations, reflux, diarrhea and constipation. She states that to her knowledge she has never been evaluated by dehydration unit operator; has never had an EGD. She has no new questions or concerns at this time. No concerns per nursing. Reason For Visit: SYNCOPE,ACUTE KIDNEY INJURY, HYPOKALEMIA Physical Exam Vital Signs: Temp Pulse Resp BP Pulse Ox 98.2 F 90 16 134/73 H 92 12/09/18 11:25 12/09/18 11:25 12/09/18 11:25 12/09/18 11:25 12/09/18 11:25 Intake & Output 12/08/18 12/09/18 12/10/18 06:59 06:59 06:59 Intake Total 2300 480 Output Total 400 Balance 1900 480 Weight 101 kg General appearance: PRESENT: no acute distress, morbidly obese, well-developed, well-nourished Head exam: PRESENT: atraumatic, normocephalic Eye exam: PRESENT: conjunctiva pink, EOMI, PERRLA. ABSENT: scleral icterus Ear exam: PRESENT: normal external ear exam Mouth exam: PRESENT: moist, tongue midline Neck exam: ABSENT: carotid bruit, JVD, lymphadenopathy, thyromegaly Respiratory exam: PRESENT: clear to auscultation yamilex, symmetrical, unlabored. ABSENT: rales, rhonchi, wheezes Cardiovascular exam: PRESENT: RRR, +S2. ABSENT: diastolic murmur, rubs, systolic murmur Pulses: PRESENT: normal dorsalis pedis pul Vascular exam: PRESENT: normal capillary refill GI/Abdominal exam: PRESENT: diminished bowel sounds, soft. ABSENT: distended, guarding, mass, organolmegaly, rebound, tenderness Rectal exam: PRESENT: deferred Extremities exam: PRESENT: full ROM. ABSENT: calf tenderness, clubbing, pedal edema Neurological exam: PRESENT: alert, awake, oriented to person, oriented to place, oriented to time, oriented to situation, CN II-XII grossly intact. ABSENT: motor sensory deficit Psychiatric exam: PRESENT: appropriate affect, normal mood. ABSENT: homicidal ideation, suicidal ideation Skin exam: PRESENT: dry, intact, warm. ABSENT: cyanosis, rash Results Laboratory Results: 12/09/18 04:54 12/09/18 04:54 12/08/18 12/08/18 12/09/18 13:29 13:29 04:54 WBC 8.2 RBC 4.47 Hgb 13.7 Hct 41.5 MCV 93 MCH 30.7 MCHC 33.1 RDW 13.9 Plt Count 166 Seg Neutrophils % 50.4 Sodium Potassium Chloride Carbon Dioxide Anion Gap BUN Creatinine Est GFR ( Amer) Glucose Calcium Magnesium 1.8 TSH 7.76 H Free T4 Free T3 pg/mL 12/09/18 12/09/18 04:54 09:00 WBC RBC Hgb Hct MCV MCH MCHC RDW Plt Count Seg Neutrophils % Sodium 137.0 Potassium 3.3 L Chloride 99 Carbon Dioxide 27 Anion Gap 11 BUN 23 H Creatinine 1.48 H Est GFR ( Amer) 42 L Glucose 138 H Calcium 9.2 Magnesium TSH Free T4 2.17 Free T3 pg/mL 2.93 12/08/18 12/08/18 13:29 13:29 Creatine Kinase 145 H CK-MB (CK-2) 1.64 Troponin I 0.085 Assessment and Plan - Diagnosis (1) Acute kidney injury Is this a current diagnosis for this admission?: Yes Plan: Creatinine 1.48; baseline 0.81. Continue IV fluids. Avoid nephrotoxic medications as able. Daily chemistries. (2) Chronic atrial fibrillation Is this a current diagnosis for this admission?: Yes Plan: Continue home dose carvedilol and Eliquis. (3) Dehydration Is this a current diagnosis for this admission?: Yes Plan: IV fluids as mentioned. Encourage p.o. fluids. (4) Hypertension Is this a current diagnosis for this admission?: Yes Plan: Have resumed home dose carvedilol and losartan. Continue to hold Bumex secondary to NAOMI and dehydration. (5) Hypokalemia Is this a current diagnosis for this admission?: Yes Plan: Improved; 2.6->3.3 with replacement. Magnesium level is normal. Continue oral replacement today. Daily chemistries. (6) Hypothyroidism Is this a current diagnosis for this admission?: Yes Plan: TSH is high although free T4 and free to 3 are appropriate. Continue home dose Synthroid. (7) Pre-syncope Is this a current diagnosis for this admission?: Yes Plan: Likely related to volume depletion and hypokalemia. She appeared dehydrated on admission. Orthostatic vital signs every shift. Continue IV fluids. Fall precautions. (8) Vomiting and diarrhea Is this a current diagnosis for this admission?: Yes Plan: Patient reports soft stool today; stool culture pending. She also endorses nausea and emesis, although, none reported by nursing. Does appear that the patient has history of multiple ER visits for nausea and vomiting; questionable gastroparesis perhaps cyclic vomiting syndrome. Might also consider hiatal hernia given her age and morbid obesity. CT imaging done at ED visit 12/04/2018 is benign, colon diverticulosis without diverticulitis noted. Continue home dose of Bentyl and Protonix. Start Carafate and Reglan. As needed Zofran and Phenergan. - Time Time Spent with patient: 25-34 minutes Medications reviewed and adjusted accordingly: Yes Anticipated discharge: Home Within: within 48 hours - Inpatient Certification Based on my medical assessment, after consideration of the patient's comorbidities, presenting symptoms, or acuity I expect that the services needed warrant INPATIENT care.: Yes I certify that my determination is in accordance with my understanding of Medicare's requirements for reasonable and necessary INPATIENT services [42 CFR 412.3e].: Yes Medical Necessity: Need For IV Fluids
[2018-12-09] MEDS ORDERED: (PENDING PHARMACY ID) (Carvedilol [Carvedilol] 25 MG) PO SCH (18:00)
[2018-12-10] MEDS: SUCRALFATE 1 GM TABLET PO SCH ×2 (05:13→13:15)
[2018-12-10] MEDS: DICYCLOMINE HCL 20 MG TABLET PO SCH ×2 (05:13→13:12)
[2018-12-10] MEDS: OXYCODONE HCL IR 5 MG TABLET PO SCH ×2 (05:13→11:25)
[2018-12-10] MEDS: NORMAL SALINE 1000 ML 1,000 ML IV PRN (05:16)
[2018-12-10 05:42] LABS: HEMATOCRIT 36.5 % (36.0-47.0); HEMOGLOBIN 12.1 g/dL (12.0-15.5); MEAN CORPUSCULAR HEMOGLOBIN 31.1 pg (27.0-33.4); MEAN CORPUSCULAR HGB CONC 33.2 g/dL (32.0-36.0); MEAN CORPUSCULAR VOLUME 94 fl (80-97); PLATELET COUNT 125 10^3/uL (150-450); RED CELL DISTRIBUTION WIDTH 13.7 % (11.5-14.0); WHITE BLOOD COUNT 6.7 10^3/uL (4.0-10.5)
[2018-12-10 06:00] LABS: ANION GAP 7 (5-19); BLOOD UREA NITROGEN 26 mg/dL (7-20); CALCIUM 8.9 mg/dL (8.4-10.2); CARBON DIOXIDE 26 mmol/L (22-30); CHLORIDE 104 mmol/L (98-107); GLUCOSE 144 mg/dL (75-110); POTASSIUM 3.1 mmol/L (3.6-5.0)
[2018-12-10] MEDS: INSULIN LISPRO 100 UNIT/ML 3 ML VIAL SUBCUT SCH ×2 (07:40→12:30)
[2018-12-10] MEDS: ONDANSETRON HCL INJ/PF 4 MG/2 ML SDV IV PRN (07:42)
[2018-12-10] MEDS: PROMETHAZINE HCL 25 MG TABLET PO PRN (07:45)
[2018-12-10] MEDS: METOCLOPRAMIDE HCL 10 MG TABLET PO SCH ×2 (07:45→11:26)
[2018-12-10] MEDS ORDERED: POTASSIUM CHLORIDE 10 MEQ CAPSULE.ER PO ONE (09:00)
[2018-12-10] MEDS ORDERED: PANTOPRAZOLE SODIUM 40 MG TABLET.DR PO SCH (10:00)
[2018-12-10] MEDS ORDERED: LEFLUNOMIDE 20 MG TABLET PO SCH (10:00)
[2018-12-10] MEDS ORDERED: AMLODIPINE BESYLATE 5 MG TABLET PO SCH (10:00)
[2018-12-10] MEDS ORDERED: ANASTROZOLE 1 MG TABLET PO SCH (10:00)
[2018-12-10] MEDS ORDERED: BUMETANIDE 1 MG TABLET PO SCH (10:00)
[2018-12-10] MEDS ORDERED: LEVOTHYROXINE SODIUM 0.05 MG TABLET PO SCH (10:00)
[2018-12-10] MEDS: CARVEDILOL 12.5 MG TABLET PO SCH (11:01)
[2018-12-10] MEDS: APIXABAN 2.5 MG TABLET PO SCH (11:01)
[2018-12-10] MEDS: LOSARTAN POTASSIUM 50 MG TABLET PO SCH (11:03)
[2018-12-10 13:39] VITALS: BP 143/70
--- NOTE | 2018-12-12 18:39 | PDOC DISCHARGE SUMMARY ---
General - Admit/Disc Date/PCP Admission Date/Primary Care Provider: 12/09/18 16:47 SRINIVASA BURTON MD Discharge Date: 12/10/18 - Discharge Diagnosis (1) Acute kidney injury Is this a current diagnosis for this admission?: Yes Summary: Resolved; prerenal secondary to poor p.o. intake. Patient was provided and I am and ask as needed and supported with IV fluids. She is now tolerating a regular diet with nausea but no emesis. She is discharged home with prescriptions for Phenergan, Reglan, and Carafate. She is discharged home in stable condition. She is advised to follow-up with her primary care provider within 1 week; recommend the patient be evaluated by trimmer climber. She was educated on clear liquid diet advance to brat slowly. She is encouraged to keep a food diary or to conduct a food elimination diet to ascertain the causes of her symptoms. She is instructed to return to the emergency department as needed for concerning symptoms. (2) Chronic atrial fibrillation Is this a current diagnosis for this admission?: Yes Summary: Continue home dose carvedilol and Eliquis. (3) Dehydration Is this a current diagnosis for this admission?: Yes Summary: Resolved. Patient was supported with IV fluids. She is provided antiemetics as needed. She is now tolerating regular diet with continued nausea but no emesis. (4) Hypertension Is this a current diagnosis for this admission?: Yes Summary: Continue home dose carvedilol, and losartan. Resume Bumex upon discharge. (5) Hypokalemia Is this a current diagnosis for this admission?: Yes Summary: Improved with oral replacement. Recommend repeat chemistry at follow-up appointment with PCP. (6) Hypothyroidism Is this a current diagnosis for this admission?: Yes Summary: TSH is high although free T4 and free to 3 are appropriate. Continue home dose Synthroid. (7) Pre-syncope Is this a current diagnosis for this admission?: Yes Summary: Likely related to volume depletion and hypokalemia. She appeared dehydrated on admission. Orthostatic vital signs are now negative. Patient has been ambulatory to the restroom without recurrent symptoms. She is advised to change positions slowly. (8) Vomiting and diarrhea Is this a current diagnosis for this admission?: Yes Summary: Patient reports soft stool 1-2 times daily. She endorses nausea without emesis. Does appear that the patient has history of multiple ER visits for nausea and vomiting; questionable gastroparesis perhaps cyclic vomiting syndrome. Might also consider hiatal hernia given her age and morbid obesity. CT imaging done at ED visit 12/04/2018 is benign, colon diverticulosis without diverticulitis noted. Stool culture is negative. Continue home dose of Bentyl and Protonix. Started on Carafate and Reglan. Continue as needed Zofran and Phenergan. Patient is now tolerating a regular diet with continued nausea but no emesis. - Additional Information Resuscitation Status: Do Not Resuscitate Discharge Diet: Cardiac, Diabetic Discharge Activity: Activity As Tolerated, Balance Activity w/Rest, Slowly Increase Activity Prescriptions: Sucralfate [Carafate 1 gm Tablet] 1 gm PO Q8 #90 tablet Apixaban [Eliquis 5 mg Tablet] 5 mg PO BID #60 tablet Metformin HCl [Glucophage Xr] 750 mg PO DAILY #30 tab.er.24h Promethazine HCl [Phenergan 25 mg Tablet] 1 tab PO Q6H PRN #15 tablet PRN Reason: Metoclopramide HCl [Reglan 10 mg Tablet] 5 mg PO ACHS #120 tablet Home Medications: Levothyroxine Sodium [Synthroid] 50 mcg PO DAILY 07/15/13 Pantoprazole Sodium 40 mg PO DAILY 07/15/13 Amlodipine Besylate 5 mg PO DAILY 06/02/17 Bumetanide 1 mg PO DAILY 06/02/17 Carvedilol 25 mg PO BID 06/02/17 Cyanocobalamin (Vitamin B-12) [Vitamin B12] 2,500 mcg PO DAILY 06/02/17 Ergocalciferol (Vitamin D2) [Vitamin D2] 50,000 unit PO TU@1000 PRN 06/02/17 Leflunomide 20 mg PO DAILY 06/02/17 Vitamin E (Dl, Acetate) [Vitamin E 400 Unit Capsule] 400 unit PO DAILY 06/02/17 Anastrozole [Arimidex 1 mg Tablet] 1 mg PO DAILY 12/08/18 Cyclobenzaprine HCl [Flexeril 10 mg Tablet] 10 mg PO TIDP PRN 12/08/18 Dicyclomine HCl [Bentyl 20 mg Tablet] 20 mg PO Q8 12/08/18 Losartan Potassium [Cozaar 100 mg Tablet] 100 mg PO DAILY 12/08/18 Ondansetron HCl [Zofran 4 mg Tablet] 2 tab PO Q4H PRN 12/08/18 Oxycodone HCl [Oxy-Ir 5 mg Tablet] 10 mg PO Q6 12/08/18 Metoclopramide HCl [Reglan 10 mg Tablet] 5 mg PO ACHS #120 tablet 12/09/18 Sucralfate [Carafate 1 gm Tablet] 1 gm PO Q8 #90 tablet 12/09/18 Apixaban [Eliquis 5 mg Tablet] 5 mg PO BID #60 tablet 12/10/18 Metformin HCl [Glucophage Xr] 750 mg PO DAILY #30 tab.er.24h 12/10/18 Promethazine HCl [Phenergan 25 mg Tablet] 1 tab PO Q6H PRN #15 tablet 12/10/18 History of Present Illness History of Present Illness: Per H&P by Dr. Moreno: CRISTINO HANNAH is a 73 year old female with a past medical history of breast cancer in remission, chronic atrial fibrillation on Eliquis, hypertension, diet-controlled diabetes mellitus, rheumatoid arthritis and hypertension who presented with presyncope. Patient says that she started having multiple episodes of nausea and vomiting associated with loose stools for the past 8 days. She had 2 recent ER visits for this for which she also had a CT of the abdomen and pelvis which was unremarkable. She says that the nausea and vomiting did not really significantly improve. She says that the loose stools have improved but she still had an episode of loose, nonbloody stool earlier this morning. She says she has not been eating or drinking a lot at home as she continues to have nausea and retching. She had a routine follow-up appointment with Dr. Stone for her breast cancer earlier this morning. On her way out of the car she says she felt lightheaded and dizzy and almost passed out but did not have syncope per se. In the clinic, when her weight was taken she also is large and almost pas sed out when she stood up to stand on the scale hence was sent to the ER. Upon encounter, she appears comfortable in bed. She denies any chest pain or shortness of breath. She is currently not having any dizziness or lightheadedness or headache. Physical Exam Vital Signs: Temp Pulse Resp BP Pulse Ox 97.8 F 74 23 H 143/70 H 95 12/10/18 13:33 12/10/18 13:33 12/10/18 13:33 12/10/18 13:33 12/10/18 13:33 Intake & Output 12/11/18 12/12/18 12/13/18 06:59 06:59 06:59 Intake Total 360 Balance 360 General appearance: PRESENT: no acute distress, obese, well-developed, well- nourished Head exam: PRESENT: atraumatic, normocephalic Eye exam: PRESENT: conjunctiva pink, EOMI, PERRLA. ABSENT: scleral icterus Ear exam: PRESENT: normal external ear exam Mouth exam: PRESENT: moist, tongue midline Neck exam: ABSENT: carotid bruit, JVD, lymphadenopathy, thyromegaly Respiratory exam: PRESENT: clear to auscultation yamilex. ABSENT: rales, rhonchi, wheezes Cardiovascular exam: PRESENT: RRR. ABSENT: diastolic murmur, rubs, systolic murmur Pulses: PRESENT: normal dorsalis pedis pul Vascular exam: PRESENT: normal capillary refill GI/Abdominal exam: PRESENT: normal bowel sounds, soft. ABSENT: distended, guarding, mass, organolmegaly, rebound, tenderness Rectal exam: PRESENT: deferred Extremities exam: PRESENT: full ROM. ABSENT: calf tenderness, clubbing, pedal edema Musculoskeletal exam: PRESENT: ambulatory Neurological exam: PRESENT: alert, awake, oriented to person, oriented to place, oriented to time, oriented to situation, CN II-XII grossly intact. ABSENT: motor sensory deficit Psychiatric exam: PRESENT: appropriate affect, normal mood. ABSENT: homicidal ideation, suicidal ideation Skin exam: PRESENT: dry, intact, warm. ABSENT: cyanosis, rash Results Laboratory Results: 12/10/18 04:44 12/10/18 04:44 12/09/18 15:35 Stool - Stool - Final 12/09/18 15:35 Stool - Stool Stool Culture - Final NO SALMONELLA, SHIGELLA, CAMPYLOBACTER, OR E.COLI 0157 RECOVERED. NEGATIVE FOR SHIGA TOXINS 1&2. 12/08/18 12/08/18 13:29 13:29 Creatine Kinase 145 H CK-MB (CK-2) 1.64 Troponin I 0.085 Qualifiers - * PATIENT BEING DISCHARGED WITH ANY OF THE FOLLOWING DIAGNOSIS: No Acute Heart Failure - Is this a Heart Failure Patient?: No Plan Discharge Plan: The patient is discharged home in stable condition. She is advised to following: Follow up with your primary care provider within 1 week. We recommend that you get evaluated by a gastroenteritis. Eat small portions. Stay sitting upright for at least 40 minutes after you eat. If you have nausea/vomiting, drink clear liquids (no dairy products). As your symptoms improve, advance to a TANGELA diet (bananas, plain rice, apple sauce, plain toast, and tea). Avoid raw vegetables, no red meats. Cook all vegetables thoroughly. Avoid NSAIDS (Advil, Aleve, Naprosyn, Motrin, etc), caffeine, tobacco/smoking, and alcohol. Take your medications as prescribed. Consider keeping a symptom journal; write down what you eat each day, when your symptoms occur, if anything seems to make it better or worse, and if you've had any new medications started. Occasionally this reveals patterns so that you can eliminate the cause of your nausea. Return to the emergency department as needed for concerning symptoms. Time Spent: Greater than 30 Minutes
== END 2018-12-10 14:56 | disposition home or self-care (01) | DRG 684 ==
LOC: ER 12:31 → EH 15:34 → INTOOBSV 15:34 → 4N 18:23 → OBSVTOIN 12-09 16:47
PROVIDERS: ADMIT Internal Medicine; ATTEND Internal Medicine
DX: N17.9 Acute kidney failure, unspecified (principal); I48.2 Chronic atrial fibrillation; E86.0 Dehydration; I10 Essential (primary) hypertension; E87.6 Hypokalemia; E03.9 Hypothyroidism, unspecified; E11.9 Type 2 diabetes mellitus without complications; M06.9 Rheumatoid arthritis, unspecified; E66.01 Morbid (severe) obesity due to excess calories; Z66 Do not resuscitate; Z96.652 Presence of left artificial knee joint; Z79.01 Long term (current) use of anticoagulants; Z79.899 Other long term (current) drug therapy; Z79.891 Long term (current) use of opiate analgesic; Z85.3 Personal history of malignant neoplasm of breast; Z88.6 Allergy status to analgesic agent; Z88.3 Allergy status to other anti-infective agents; Z88.8 Allergy status to other drugs, medicaments and biological substances; Z83.3 Family history of diabetes mellitus; Z82.49 Family history of ischemic heart disease and other diseases of the circulatory system; Z79.82 Long term (current) use of aspirin; Z79.84 Long term (current) use of oral hypoglycemic drugs
CPT/HCPCS: 36415; 80048; 80053; 81001; 82550; 82553; 82962; 83036; 83735; 84439; 84443; 84481; 84484; 85025; 85027; 87045; 87205; 89055; 93005; 93010; 99285; J1815; J2405; J3480; J3490; J7030; J7120

== ENCOUNTER 2019-01-11 07:00 | Day surgery (SDC) | payer MEDICARE, OTHER ==
[2019-01-11] MEDS ORDERED: EPINEPHRINE INJ 1 MG/10 ML DISP.SYRIN ONE (08:03)
[2019-01-11] MEDS ORDERED: MIDAZOLAM 2 MG/2 ML INJ ONE (08:03)
[2019-01-11] MEDS ORDERED: FENTANYL CITRATE INJ/PF 100 MCG/2 ML AMPUL ONE (08:03)
[2019-01-11] MEDS ORDERED: GLUCAGON,HUMAN RECOMB 1 MG INJ ONE (08:03)
[2019-01-11] MEDS ORDERED: FLUMAZENIL INJ 0.5 MG/5 ML VIAL ONE (08:03)
[2019-01-11] MEDS ORDERED: NALOXONE HCL INJ/PF 0.4 MG/1 ML SDV ONE (08:03)
[2019-01-11] MEDS ORDERED: ONDANSETRON HCL INJ/PF 4 MG/2 ML SDV ONE (08:03)
[2019-01-11] MEDS ORDERED: DIPHENHYDRAMINE HCL 50 MG/ML VIAL ONE (08:03)
--- NOTE | 2019-01-11 08:22 | Operative Report ---
Operative Report DATE OF SURGERY: 01/11/19 Operative Report: The risks benefits and alternatives of the procedure explained to the patient in detail and informed consent is obtained.A GIF Olympus video scope was inserted into the patient's mouth and hypopharynx, the esophagus is identified intubated and insufflated, the scope was then advanced through the esophagus stomach and duodenum ,retroflexion maneuver is done, the esophagus stomach and first and second portions of the duodenum examined. PREOPERATIVE DIAGNOSIS: Nausea vomiting, early satiety POSTOPERATIVE DIAGNOSIS: Schatzki's ring which is broken. Hiatal hernia. Gastritis rule out Helicobacter pylori. No gastric outlet obstruction OPERATION: EGD with biopsy SURGEON: KONSTANTIN GALVAN ANESTHESIA: Moderate Sedation - 2 mg of Versed, 25 mcg of fentanyl. Conscious sedation monitoring time 30 minutes. TISSUE REMOVED OR ALTERED: As noted above. COMPLICATIONS: None. ESTIMATED BLOOD LOSS: None. INTRAOPERATIVE FINDINGS: As noted above. PROCEDURE: Patient tolerated the procedure well. No immediate postprocedure complications are noted. Patient is discharged in good condition. Discharge date 01/11/2019. Discharge diet: Regular. Discharge activity: Regular. 2 to 3-week follow-up to discuss findings. Patient is instructed to call the office or proceed to the emergency room should there be any further problems or questions. Wait on the pathology.
[2019-01-11 09:32] VITALS: BP 128/83
[2019-01-11] MEDS ORDERED: DIPHENHYDRAMINE HCL 50 MG/ML VIAL IV PRN (14:06)
== END 2019-01-11 09:35 | disposition home or self-care (01) ==
LOC: END 07:00
PROVIDERS: ATTEND Internal Medicine Gastroenterology
DX: K22.2 Esophageal obstruction (principal); K29.50 Unspecified chronic gastritis without bleeding; K44.9 Diaphragmatic hernia without obstruction or gangrene; Z79.899 Other long term (current) drug therapy; Z79.01 Long term (current) use of anticoagulants
CPT/HCPCS: 43239; 82962; 88305 ×2; J2250; J3010; J0171; J1200; J1610; J2310; J2405; J3490